=== PATIENT | male | born 1990 | race Caucasian/White ===

== ENCOUNTER 2017-12-22 01:32 | Emergency (ER) | payer BC ==
[2017-12-22] MEDS ORDERED: HYDROCODONE/APAP 7.5/325 MG TAB ONE (02:13)
[2017-12-22] MEDS ORDERED: NA CHLORIDE 0.9% 1,000 ML ONE (02:13)
[2017-12-22 02:47] LABS: Absolute Lymphocytes (CBC) 3.5 K/uL (0.7-4.9); Absolute Monocytes 0.8 K/uL (0.1-1.3); Absolute Neutrophil 3.2 K/uL (1.8-8.0); Basophils % 0.5 % (0-1.3); Eosinophils % 3.4 % (0-4.4); Hematocrit 47.8 % (39.6-49.0); Lymphocytes % 45.4 % (15.3-44.8); MCH 29.8 pg (27.0-35.0); MCV 85.8 fL (80-100); MPV 8.8 fL (7.6-11.3); Monocytes % 9.7 % (3.3-12.3); RBC Red Blood Cell Count 5.57 M/uL (4.33-5.43)
[2017-12-22] MEDS ORDERED: ONDANSETRON 4 MG/2 ML VIAL ONE (03:04)
[2017-12-22] MEDS ORDERED: MORPHINE 4 MG/ML SYR ONE (03:04)
[2017-12-22 03:22] LABS: Thyroid Stimulating Hormone 7.37 uIU/mL (0.36-3.74)
[2017-12-22 03:32] LABS: Urine Blood NEGATIVE (NEG); Urine Glucose NEGATIVE (NEG); Urine Protein NEGATIVE (NEG); Urine Specific Gravity 1.025 (1.005-1.030)
[2017-12-22 03:43] LABS: Barbiturates NEGATIVE (NEGATIVE); Benzodiazepines NEGATIVE (NEGATIVE); Cocaine NEGATIVE (NEGATIVE); METHAMPHETAM NEGATIVE (NEGATIVE); Methadone NEGATIVE (NEGATIVE); Opiates NEGATIVE (NEGATIVE); Phencyclidine NEGATIVE (NEGATIVE); THC Cannibis NEGATIVE (NEGATIVE)
--- NOTE | 2017-12-22 04:17 | ER ---
Nurse's Notes [facility] Name: Otto Sullivan Age: 27 yrs Sex: Male : 1990 Arrival Date: 12/22/2017 Time: 01:38 Bed 15 Private MD: Diagnosis: Acute headache. Viral syndrome. Hypothyroidism. Dental pain Presentation: 12/22 01:54 Presenting complaint: Patient states: "Since Wednesday, I have felt hungover is the best lp1 way to describe it"; Patient states having migraines, general weakness, getting fatigued quicker at work; Also have pain to tooth on right side of mouth. Transition of care: patient was not received from another setting of care. Onset of symptoms was December 17, 2017. Risk Assessment: Do you want to hurt yourself or someone else? Patient reports no desire to harm self or others. Initial Sepsis Screen: Does the patient meet any 2 criteria? No. Patient's initial sepsis screen is negative. Does the patient have a suspected source of infection? No. Patient's initial sepsis screen is negative. Care prior to arrival: None. 01:54 Method Of Arrival: Ambulatory lp1 01:54 Acuity: MARLON 3 lp1 Triage Assessment: 02:07 Headache History: The patient has had previous headaches and this one is different than lp1 previous episodes. General: Patient states migraine lasting longer that normal. 02:08 Pain: Pain began 2-3 days ago. lp1 02:08 Pain: Also complains of nausea. lp1 Historical: - Allergies: 01:57 No Known Allergies; lp1 - Home Meds: 01:57 None [Active]; lp1 - PMHx: 01:57 Migraines; lp1 - PSHx: 01:57 None; lp1 - Immunization history:: Adult Immunizations up to date. - Social history:: Smoking status: Patient uses tobacco products, smokes one pack cigarettes per day. - Ebola Screening: : No symptoms or risks identified at this time. Screenin:58 Abuse screen: Denies threats or abuse. Denies injuries from another. Nutritional lp1 screening: No deficits noted. Tuberculosis screening: No symptoms or risk factors identified. Fall Risk None identified. Assessment: 01:58 General: Appears in no apparent distress. Behavior is calm, cooperative, appropriate lp1 for age. Pain: Complains of pain in head Pain currently is 2 out of 10 on a pain scale. Quality of pain is described as aching. Neuro: Level of Consciousness is awake, alert, obeys commands, Oriented to person, place, time, situation, Gait is steady, Pupils are PERRLA, Reports weakness exacerbated when at work in the heat. 02:04 Cardiovascular: Patient's skin is warm and dry. Respiratory: Respiratory effort is lp1 even, unlabored, Breath sounds are clear bilaterally. GI: Abdomen is non-distended, Reports nausea. : No signs and/or symptoms were reported regarding the genitourinary system. EENT: Reports pain in right jaw. Derm: Skin is pink, warm \\T\\ dry. Musculoskeletal: Circulation, motion, and sensation intact. 03:13 Reassessment: Patient states feeling drowsy from [place], but pain to tooth on right side lp1 is not relieved, Provider notified. 03:45 Reassessment: Patient resting, eyes closed, respirations unlabored. lp1 Vital Signs: 01:56 BP 111 / 78; Pulse 69; Resp 18; Temp 97.8(O); Pulse Ox 98% on R/A; Weight 95.25 kg; lp1 Height 5 ft. 11 in. (180.34 cm); Pain 0/10; 03:13 BP 125 / 92; Pulse 60; Resp 16; Pulse Ox 100% on R/A; lp1 01:56 Body Mass Index 29.29 (95.25 kg, 180.34 cm) lp1 ED Course: 01:38 Patient arrived in ED. es 01:42 Wing Reese MD is Attending Physician. pkl 01:54 Ramila German, TOMMY is Primary Nurse. lp1 01:56 Triage completed. lp1 01:56 Arm band placed on right wrist. lp1 02:06 Patient has correct armband on for positive identification. lp1 02:24 Inserted saline lock: 22 gauge in right antecubital area, using aseptic technique. lp1 Blood collected. 03:20 Initial lab(s) drawn, by me, sent to lab. lp1 03:25 Urine collected: clean catch specimen, clear. lp1 04:18 Assist provider with bone marrow aspiration. IV discontinued, bleeding controlled, No lp1 redness/swelling at site. Pressure dressing applied. Administered Medications: 02:24 Drug: NS 0.9% 1000 ml Route: IV; Rate: 1000 ml; Site: right antecubital; lp1 04:18 Follow up: IV Status: Completed infusion; IV Intake: 1000ml lp1 02:25 Drug: [place] (7.5 mg-325 mg) 1 tabs Route: PO; lp1 03:12 Follow up: Response: Pain is unchanged, physician notified lp1 03:12 Drug: morphine 2 mg Route: IVP; Site: right antecubital; lp1 04:18 Follow up: Response: Pain is decreased lp1 03:12 Drug: Zofran 4 mg Route: IVP; Site: right antecubital; lp1 04:18 Follow up: Response: No adverse reaction lp1 Intake: 04:18 IV: 1000ml; Total: 1000ml. lp1 Outcome: 04:16 Discharge ordered by . pksandra 04:27 Discharged to home ambulatory, with family. lp1 04:27 Condition: good 04:27 Discharge instructions given to patient, Instructed on discharge instructions, follow up and referral plans. medication usage, Demonstrated understanding of instructions, follow-up care, medications, Prescriptions given X 2. 04:27 Patient left the ED. lp1 Signatures: Wing Reese MD MD pkl Salyer, Edna es Pena, Laura RN RN lp1 Corrections: (The following items were deleted from the chart) 02:06 01:58 Neuro: Level of Consciousness is awake, alert, obeys commands, Oriented to lp1 person, place, time, situation, Gait is steady, Pupils are PERRLA, Reports weakness lp1
--- NOTE | 2017-12-22 04:17 | EDPHYS ---
Physician Documentation [facility] Name: Otto Sullivan Age: 27 yrs Sex: Male : 1990 Arrival Date: 12/22/2017 Time: 01:38 Bed 15 Private MD: ED Physician Wing Reese HPI: 12/22 02:07 This 27 yrs old Male presents to ER via Ambulatory with complaints of pkl Headache, Weakness, Toothache, Feel hung over not drunk. 02:07 The patient complains of pain to the top of head and forehead. The patient describes pkl the headache as constant. Onset: The symptoms/episode began/occurred 4 day(s) ago. Associated signs and symptoms: Pertinent positives: toothache and tiredness. Historical: - Allergies: 01:57 No Known Allergies; lp1 - Home Meds: 01:57 None [Active]; lp1 - PMHx: 01:57 Migraines; lp1 - PSHx: 01:57 None; lp1 - Immunization history:: Adult Immunizations up to date. - Social history:: Smoking status: Patient uses tobacco products, smokes one pack cigarettes per day. - Ebola Screening: : No symptoms or risks identified at this time. ROS: 02:07 Eyes: Negative for injury, pain, redness, and discharge. pkl 02:07 ENT: Positive for dental pain, of the right jaw. 02:07 Neck: Negative for stiffness. 02:07 Cardiovascular: Negative for chest pain. 02:07 Respiratory: Negative for cough, shortness of breath. 02:07 Abdomen/GI: Positive for nausea. 02:07 Back: Negative for acute changes. 02:07 : Negative for urinary symptoms. 02:07 MS/extremity: Negative for acute changes. 02:07 Skin: Negative for rash. 02:07 Neuro: Positive for headache. Exam: 02:07 Head/Face: Normocephalic, atraumatic. Eyes: Pupils equal round and reactive to light, pkl extra-ocular motions intact. Lids and lashes normal. Conjunctiva and sclera are non-icteric and not injected. Cornea within normal limits. Periorbital areas with no swelling, redness, or edema. 02:07 ENT: Dental exam: pain, that is mild, specifically in the lower right second molar (#31). 02:07 Neck: Exam negative for nuchal rigidity. 02:07 Chest/axilla: Exam negative for acute changes. 02:07 Cardiovascular: Rate: normal, Rhythm: regular. 02:07 Respiratory: the patient does not display signs of respiratory distress, Respirations: normal, Breath sounds: are clear throughout. 02:07 Abdomen/GI: Bowel sounds: normal, Palpation: abdomen is soft and non-tender, in all quadrants. 02:07 Back: Exam negative for acute changes. 02:07 : Exam negative for acute changes. 02:07 Musculoskeletal/extremity: Exam is negative for acute changes. 02:07 Skin: Exam negative for rash. 02:07 Neuro: Orientation: is normal, Mentation: is normal, Cranial nerves: grossly normal, Motor: is normal. Vital Signs: 01:56 BP 111 / 78; Pulse 69; Resp 18; Temp 97.8(O); Pulse Ox 98% on R/A; Weight 95.25 kg; lp1 Height 5 ft. 11 in. (180.34 cm); Pain 0/10; 03:13 BP 125 / 92; Pulse 60; Resp 16; Pulse Ox 100% on R/A; lp1 01:56 Body Mass Index 29.29 (95.25 kg, 180.34 cm) lp1 MDM: 01:43 Patient medically screened. pkl 04:14 Data reviewed: vital signs, nurses notes, lab test result(s). pkl 12/22 02:06 Order name: CBC with Diff; Complete Time: 03:00 pkl 12/22 02:06 Order name: Chem 7; Complete Time: 03:43 pkl 12/22 02:06 Order name: TSH; Complete Time: 03:43 pkl 12/22 02:06 Order name: UDS; Complete Time: 03:46 pkl 12/22 03:12 Order name: [place]y Screen Profile; Complete Time: 04:00 pkl 12/22 03:23 Order name: T4 Free; Complete Time: 03:43 EDMS 12/22 03:30 Order name: Urine Dipstick--Ancillary (enter results); Complete Time: 03:43 mt Administered Medications: 02:24 Drug: NS 0.9% 1000 ml Route: IV; Rate: 1000 ml; Site: right antecubital; lp1 04:18 Follow up: IV Status: Completed infusion; IV Intake: 1000ml lp1 02:25 Drug: [place] (7.5 mg-325 mg) 1 tabs Route: PO; lp1 03:12 Follow up: Response: Pain is unchanged, physician notified lp1 03:12 Drug: morphine 2 mg Route: IVP; Site: right antecubital; lp1 04:18 Follow up: Response: Pain is decreased lp1 03:12 Drug: Zofran 4 mg Route: IVP; Site: right antecubital; lp1 04:18 Follow up: Response: No adverse reaction lp1 Disposition: 12/22/17 04:16 Discharged to Home. Impression: Acute headache. Viral syndrome. Hypothyroidism. Dental pain. - Condition is Stable. - Prescriptions for Ultram 50 mg Oral Tablet - take 1 tablet by ORAL route every 8 hours As needed; 20 tablet. Levothyroxine 50 mcg Oral Tablet - take 1 tablet by ORAL route once daily take 30 minutes before breakfast; 60 tablet. - Work release form, Medication Reconciliation Form, Thank You Letter, Antibiotic Education, Prescription Opioid Use form. - Follow up: Private Physician; When: 2 - 3 days; Reason: Re-evaluation by your physician. - Problem is new. - Symptoms are unchanged. Signatures: Dispatcher [employer] EDWing Chang MD MD pkl Ramila German RN RN lp1 Corrections: (The following items were deleted from the chart) 04:27 04:16 12/22/2017 04:16 Discharged to Home. Impression: Acute headache. Viral syndrome. lp1 Hypothyroidism. Dental pain. Condition is Stable. Forms are Medication Reconciliation Form, Thank You Letter, Antibiotic Education, Prescription Opioid Use. Follow up: Private Physician; When: 2 - 3 days; Reason: Re-evaluation by your physician. Problem is new. Symptoms are unchanged. pkl
== END 2017-12-22 04:27 | disposition home or self-care (01) ==
LOC: ER 01:32
DX: R51 Headache (principal); B34.9 Viral infection, unspecified; E03.9 Hypothyroidism, unspecified; K08.89 Other specified disorders of teeth and supporting structures; F17.210 Nicotine dependence, cigarettes, uncomplicated
CPT/HCPCS: 36415; 80048; 80307; 81003; 84439; 84443; 85025; 86308; 96361; 96374; 96375; 99284; J2405; J7030

== ENCOUNTER 2018-09-28 05:56 | Emergency (ER) | payer BC ==
[2018-09-28] MEDS ORDERED: hydrOXYzine HCl 25 MG TAB ONE (06:40)
--- NOTE | 2018-09-28 07:07 | EDPHYS ---
Physician Documentation [facility] Name: Otto Sullivan Age: 28 yrs Sex: Male : 1990 Arrival Date: 09/28/2018 Time: 05:57 Bed 7 Private MD: Nakul Goldstein ED Physician Gianluca Alonso HPI: 09/28 06:27 This 28 yrs old Male presents to ER via Ambulatory with complaints of Anxiety.pm1 06:27 The patient presents to the emergency department with anxiety, over a relationship, has pm1 had a recent break-up. Onset: The symptoms/episode began/occurred 1 week(s) ago. Past psychiatric history: Prior diagnosis: no previous psychiatric diagnosis known, Psychiatric medications include: none, Primary psychiatric physician: the patient does not have a primary psychiatric physician. Associated signs and symptoms: Pertinent positives; anxiety, SOB and hyperventilation, Pertinent negatives: abdominal pain, chest pain, fever, headache, homicidal ideation, nausea, substance abuse, suicide ideation, vomiting. Severity of symptoms: in the emergency department the symptoms are unchanged Pain is currently a 0 / 10. The patient has not experienced similar symptoms in the past. The patient has not recently seen a physician, the patient's primary care provider is Dr. Goldstein. Patient left his of 10 years one week ago and since then he has had episodes of anxiety with hyperventilation and shortness of breath episodes. He left her due to a toxic relationship between them. He had been planning to leave her and moved into a separate apartment. He has not been able to focus at work and came to the ER hoping that there is a medication that he can take to calm him down and to help him focus at work. Historical: - Allergies: 06:10 No Known Allergies; tl2 - Home Meds: 06:10 None [Active]; tl2 - PMHx: 06:10 Migraines; tl2 - PSHx: 06:10 None; tl2 - Immunization history:: Adult Immunizations up to date. - Social history:: Smoking status: Patient uses tobacco products, smokes one pack cigarettes per day. - Ebola Screening: : No symptoms or risks identified at this time. ROS: 06:27 Constitutional: Negative for fever, chills, and weight loss, Eyes: Negative for injury, pm1 pain, redness, and discharge, ENT: Negative for injury, pain, and discharge, Neck: Negative for injury, pain, and swelling, Cardiovascular: Negative for chest pain, palpitations, and edema. 06:27 Abdomen/GI: Negative for abdominal pain, nausea, vomiting, diarrhea, and constipation, Back: Negative for injury and pain, : Negative for injury, bleeding, discharge, and swelling, MS/Extremity: Negative for injury and deformity, Skin: Negative for injury, rash, and discoloration, Neuro: Negative for headache, weakness, numbness, tingling, and seizure. 06:27 Respiratory: Positive for shortness of breath, with anxiety episodes, Negative for cough, sputum production, wheezing. 06:27 Psych: Positive for anxiety, depression, Negative for drug dependence, alcohol dependence, auditory hallucinations, visual hallucinations, homicidal ideation, suicide gesture, suicidal ideation. Exam: 06:27 Constitutional: This is a well developed, well nourished patient who is awake, alert, pm1 and in no acute distress. Head/Face: Normocephalic, atraumatic. Eyes: Pupils equal round and reactive to light, extra-ocular motions intact. Lids and lashes normal. Conjunctiva and sclera are non-icteric and not injected. Cornea within normal limits. Periorbital areas with no swelling, redness, or edema. ENT: Nares patent. No nasal discharge, no septal abnormalities noted. Tympanic membranes are normal and external auditory canals are clear. Oropharynx with no redness, swelling, or masses, exudates, or evidence of obstruction, uvula midline. Mucous membranes moist. Neck: Trachea midline, no thyromegaly or masses palpated, and no cervical lymphadenopathy. Supple, full range of motion without nuchal rigidity, or vertebral point tenderness. No Meningismus. Chest/axilla: Normal chest wall appearance and motion. Nontender with no deformity. No lesions are appreciated. Cardiovascular: Regular rate and rhythm with a normal S1 and S2. No gallops, murmurs, or rubs. Normal PMI, no JVD. No pulse deficits. Respiratory: Lungs have equal breath sounds bilaterally, clear to auscultation and percussion. No rales, rhonchi or wheezes noted. No increased work of breathing, no retractions or nasal flaring. Abdomen/GI: Soft, non-tender, with normal bowel sounds. No distension or tympany. No guarding or rebound. No evidence of tenderness throughout. Back: No spinal tenderness. No costovertebral tenderness. Full range of motion. Skin: Warm, dry with normal turgor. Normal color with no rashes, no lesions, and no evidence of cellulitis. MS/ Extremity: Pulses equal, no cyanosis. Neurovascular intact. Full, normal range of motion. 06:27 Neuro: Orientation: is normal, Motor: is normal, moves all fours, Gait: is steady, at a normal pace, without difficulty. 06:27 Psych: Behavior/mood is anxious, Affect is animated, Oriented to person, place, time, Patient has no thoughts/intents to harm self or others. Judgement / Insight is normal. Delusions/hallucinations are not present. Vital Signs: 06:10 BP 118 / 86; Pulse 67; Resp 20; Temp 98.1(O); Pulse Ox 99% on R/A; Weight 94.35 kg; tl2 Height 5 ft. 11 in. (180.34 cm); Pain 0/10; 07:30 BP 120 / 78; Pulse 61; Resp 18; Temp 97.8; Pulse Ox 100% on R/A; ph 06:10 Body Mass Index 29.01 (94.35 kg, 180.34 cm) tl2 MDM: 06:13 Patient medically screened. pm1 06:27 Data reviewed: vital signs. Data interpreted: Pulse oximetry: on room air is 99 %. pm1 Interpretation: normal. 06:27 Refusal of service: The patient/guardian displays adequate decision making capability pm1 and despite a detailed discussion of alternatives, benefits, risks, and consequences refuses: all lab tests, ECG. Patient left his of 10 years, 1 week ago and his feelings of anxiety started after he left her. Patient does not want any labs or ECG because he is hoping for a medication to help him feel relaxed and able to go work. . 07:06 Counseling: I had a detailed discussion with the patient and/or guardian regarding: the pm1 historical points, exam findings, and any diagnostic results supporting the discharge/admit diagnosis, the need for outpatient follow up, for definitive care, a family practitioner, a psychiatrist, to return to the emergency department if symptoms worsen or persist or if there are any questions or concerns that arise at home. 07:34 ED course: Patient reports that he is feeling better now with the medication given in pm1 the ER. He feels calmer now. Administered Medications: 06:30 Drug: hydrOXYzine 50 mg Route: PO; lp1 07:30 Follow up: Response: No adverse reaction ph Disposition: 20:27 Co-signature as Attending Physician, Gianluca Alonso MD. rn Disposition: 09/28/18 07:06 Discharged to Home. Impression: Acute stress reaction. - Condition is Stable. - Discharge Instructions: Panic Attacks, Stress and Stress Management. - Prescriptions for Hydroxyzine HCl 25 mg Oral Tablet - take 1 tablet by ORAL route every 6 hours As needed; 30 tablet. - Work release form, Medication Reconciliation Form, Thank You Letter, Antibiotic Education, Prescription Opioid Use form. - Follow up: Emergency Department; When: As needed; Reason: Worsening of condition. Follow up: Private Physician; When: 2 - 3 days; Reason: Recheck today's complaints, Continuance of care, Re-evaluation by your physician. Follow up: Nakul Goldstein MD; When: 2 - 3 days; Reason: Recheck today's complaints, Continuance of care, Re-evaluation by your physician. - Problem is new. - Symptoms have improved. Signatures: Gianluca Alonso MD MD rn Pena, Laura, RN RN lp1 Toyin Bell, TOMMY RN ph Charles Bateman, LILIAN [employer] MACHINE OPERATOR pm1 Sheree Harley RN RN tl2 Corrections: (The following items were deleted from the chart) 07:06 07:06 09/28/2018 07:06 Discharged to Home. Impression: Acute stress reaction. Condition pm1 is Stable. Discharge Instructions: Panic Attacks, Stress and Stress Management. Prescriptions for Hydroxyzine HCl 25 mg Oral Tablet - take 1 tablet by ORAL route every 6 hours As needed; 30 tablet. and Forms are Medication Reconciliation Form, Thank You Letter, Antibiotic Education, Prescription Opioid Use. Follow up: Emergency Department; When: As needed; Reason: Worsening of condition. Follow up: Private Physician; When: 2 - 3 days; Reason: Recheck today's complaints, Continuance of care, Re-evaluation by your physician. Problem is new. Symptoms have improved. pm1 07:36 07:06 09/28/2018 07:06 Discharged to Home. Impression: Acute stress reaction. Condition ph is Stable. Discharge Instructions: Panic Attacks, Stress and Stress Management. Prescriptions for Hydroxyzine HCl 25 mg Oral Tablet - take 1 tablet by ORAL route every 6 hours As needed; 30 tablet. and Forms are Medication Reconciliation Form, Thank You Letter, Antibiotic Education, Prescription Opioid Use. Follow up: Emergency Department; When: As needed; Reason: Worsening of condition. Follow up: Private Physician; When: 2 - 3 days; Reason: Recheck today's complaints, Continuance of care, Re-evaluation by your physician. Follow up: Nakul Goldstein; When: 2 - 3 days; Reason: Recheck today's complaints, Continuance of care, Re-evaluation by your physician. Problem is new. Symptoms have improved. pm1
--- NOTE | 2018-09-28 07:07 | ER ---
Nurse's Notes [facility] Name: Otto Sullivan Age: 28 yrs Sex: Male : 1990 Arrival Date: 09/28/2018 Time: 05:57 Bed 7 Private MD: Nakul Goldstein Diagnosis: Acute stress reaction Presentation: 09/28 06:08 Presenting complaint: Patient states: having panic attacks for over a week. Dealing tl2 with stress at home. Unable to work and feels like he can't function, feels short of breath. Transition of care: patient was not received from another setting of care. Onset of symptoms was September 21, 2018. Risk Assessment: Do you want to hurt yourself or someone else? Patient reports no desire to harm self or others. Initial Sepsis Screen: Does the patient meet any 2 criteria? No. Patient's initial sepsis screen is negative. Does the patient have a suspected source of infection? No. Patient's initial sepsis screen is negative. Care prior to arrival: None. 06:08 Method Of Arrival: Ambulatory tl2 06:08 Acuity: MARLON 4 tl2 Triage Assessment: 06:10 General: Appears in no apparent distress. uncomfortable, Behavior is cooperative, tl2 anxious, restless. Pain: Denies pain. Neuro: Level of Consciousness is awake, alert, obeys commands, Oriented to person, place, time, situation. Cardiovascular: Denies chest pain. Respiratory: Airway is patent Respiratory effort is even, unlabored, Respiratory pattern is regular, symmetrical. Respiratory: Reports shortness of breath. GI: No signs and/or symptoms were reported involving the gastrointestinal system. : No signs and/or symptoms were reported regarding the genitourinary system. Derm: Skin is pink, warm \\T\\ dry. Historical: - Allergies: 06:10 No Known Allergies; tl2 - Home Meds: 06:10 None [Active]; tl2 - PMHx: 06:10 Migraines; tl2 - PSHx: 06:10 None; tl2 - Immunization history:: Adult Immunizations up to date. - Social history:: Smoking status: Patient uses tobacco products, smokes one pack cigarettes per day. - Ebola Screening: : No symptoms or risks identified at this time. Screenin:11 Abuse screen: Denies threats or abuse. Nutritional screening: No deficits noted. tl2 Tuberculosis screening: No symptoms or risk factors identified. Fall Risk None identified. Assessment: 06:10 General: Appears uncomfortable, Behavior is anxious, restless. Pain: Denies pain. lp1 Neuro: Level of Consciousness is awake, alert, obeys commands, Oriented to person, place, time, situation. Cardiovascular: Patient's skin is warm and dry. Respiratory: Reports shortness of breath "It feels like I can't catch my breath" Respiratory effort is even, unlabored, Breath sounds are clear bilaterally. GI: No signs and/or symptoms were reported involving the gastrointestinal system. : No signs and/or symptoms were reported regarding the genitourinary system. EENT: No signs and/or symptoms were reported regarding the EENT system. Derm: Skin is pink, warm \\T\\ dry. Musculoskeletal: Circulation, motion, and sensation intact. 06:25 Reassessment: Provider at bedside with patient; Patient declines need for lab work, lp1 EKG, urine testing; States "I just need something to calm me down so I can go to work". 06:25 General: Behavior is anxious. lp1 07:35 Reassessment: Patient appears in no apparent distress at this time. Patient and/or ph family updated on plan of care and expected duration. Pain level reassessed. Patient is alert, oriented x 3, equal unlabored respirations, skin warm/dry/pink. Pt states, " I am starting to feel more calm. I think the medicine is starting to work." Pt d/ home w/ prescriptions and follow up information for psychiatry. Vital Signs: 06:10 BP 118 / 86; Pulse 67; Resp 20; Temp 98.1(O); Pulse Ox 99% on R/A; Weight 94.35 kg; tl2 Height 5 ft. 11 in. (180.34 cm); Pain 0/10; 07:30 BP 120 / 78; Pulse 61; Resp 18; Temp 97.8; Pulse Ox 100% on R/A; ph 06:10 Body Mass Index 29.01 (94.35 kg, 180.34 cm) tl2 ED Course: 05:57 Patient arrived in ED. es 05:57 Nakul Goldstein MD is Private Physician. es 05:59 Ramila German, TOMMY is Primary Nurse. lp1 06:04 Charles Bateman NP is PHCP. pm1 06:04 Gianluca Alonso MD is Attending Physician. pm1 06:09 Triage completed. tl2 06:10 Arm band placed on right wrist. tl2 06:11 Patient has correct armband on for positive identification. Bed in low position. Call tl2 light in reach. Side rails up X 1. 07:06 aNkul Goldstein MD is Referral Physician. pm1 07:18 Primary Nurse role handed off by Ramila German RN bd 07:35 No provider procedures requiring assistance completed. Patient did not have IV access ph during this emergency room visit. 07:36 Toyin Bell RN is Primary Nurse. ph Administered Medications: 06:30 Drug: hydrOXYzine 50 mg Route: PO; lp1 07:30 Follow up: Response: No adverse reaction ph Outcome: 07:06 Discharge ordered by MD. pm1 07:36 Patient left the ED. ph 07:36 Discharged to home ambulatory. ph 07:36 Condition: improved 07:36 Discharge instructions given to patient, Instructed on discharge instructions, follow up and referral plans. medication usage, Demonstrated understanding of instructions, follow-up care, medications, Prescriptions given X 1. Signatures: Sharda Driver Edna es Pena, Laura, TOMMY RN lp1 Toyin Bell RN RN Charles Bateman NP INDEPENDENT LIVING INSTRUCTOR pm1 Sheree Harley RN RN tl2
== END 2018-09-28 07:36 | disposition home or self-care (01) ==
LOC: ER 05:56
DX: F43.0 Acute stress reaction (principal); F17.210 Nicotine dependence, cigarettes, uncomplicated
CPT/HCPCS: 99283

== ENCOUNTER 2019-11-04 17:55 | Emergency (ER) | payer BC ==
--- OUTSIDE RECORDS SUMMARY | 2019-11-04 17:58 | XMS REPORT | Summary of Care ---
:1990 Author Organization [facility] Address [address] [place] [address] Care Team Providers Name Role Phone Kayla Rodriguez Primary Care Provider Reason for Visit Reason Comments Skin Problem Encounter Details Date Type Department Care Team Description 09/06/2019 Telemedicine Visit [facility] Molina Il garret Alejandro MD [address] [facility] [id number] [place] [address] Neoplasm of Dermatology, Ankit An MD [address] [place] [address]. [place] [address] uncertain behavior Coleman of skin of face [address] [facility] (Primary D x) South Entrance [address], [address] [place] [phone] Allergies No Known Allergiesdocumented as of this encounter (statuses as of 09/12/2019) Medications Medication Sig Dispensed Refills Start Date End Date Status S-ADENOSYLMETHIONINE SUL Take by mouth. 0 Active TOSYL (ROBBIE-E ORAL) traMADOL 50 mg tablet Take 50 mg by 0 Active mouth every 6 (six) hours as needed. levothyroxine 50 mcg Take 1 tablet by 30 tablet 0 02/21/2018 Active tabletIndications: mouth every Acquired hypothyroidism morning. Follow-up with Dr. Adan for refills. azithromycin 250 mg Take 1 tablet by 1 Package 0 02/22/2018 Active tabletIndications: mouth Bronchitis SEE-INSTRUCTIONS . Take 500 mg day 1, then 250 mg days 2 to 5. brompheniramine-pseudoep Take 5 mL by 110 mL 0 02/22/2018 Active hedrine-DM (BROMFED DM) mouth 4 (four) 2-30-10 mg/5 mL times daily as syrupIndications: needed for Bronchitis Congestion/Aller gies or Cough. documented as of this encounter (statuses as of 09/12/2019) Active Problems Problem Noted Date Sleep apnea, unspecified type 08/15/2017 Adjustment disorder with depressed mood 11/06/2005 documented as of this encounter (statuses as of 09/12/2019) Social History Tobacco Use Types Packs/Day Years Used Date Current Every Day Smoker Cigarettes 1 14 Smokeless Tobacco: Never Used Comments: now using vape Alcohol Use Drinks/Week oz/Week Comments Yes every other week : 1 case Sex Assigned at Date Recorded Not on file Job Start Date Occupation Industry Not on file Not on file Not on file Travel History Travel Start Travel End No recent travel history available. documented as of this encounter Last Filed Vital Signs Not on filedocumented in this encounter Progress Notes Ankit An MD - 09/12/2019 2:40 PM CDT TELEHEALTH VISIT Verbal consent obtained from Otto Sullivan for telehealth services provided below. Provider at home. Patient at home. Telephone encounter. A total of 5 min was spent counseling the patient. 10:25- 10:30 am CC: lesion on face HPI Otto Sullivan is a 29 year old male presenting as follow up. He has concerns of a lesion on his leftcheek, ongoing for about 10 years. He notes it is growing in size and is itchy but not painful or bleeding. Has never peeled off. Was evaluate at his last skin check in 2018, called benign nevus. Histories Past Medical History: Diagnosis Date Bipolar disease, chronic Sleep apnea (-) personal history of skin cancer (+) family history of skin cancer: grandmother from melanoma Allergies No Known Allergies Medications Current Outpatient Medications on File Prior to Visit Medication Sig Dispense Refill azithromycin 250 mg tablet Take 1 tablet by mouth SEE-INSTRUCTIONS. Take 500 mg day 1, then 250 mg days 2 to 5. 1 Package 0 astiinmivnxqhlq-vpsvvqawpucklyz-SL (BROMFED DM) 2-30-10 mg/5 mL syrup Take 5 mL by mouth 4 (four) times daily as needed for Congestion/Allergies or Cough. 110 mL 0 levothyroxine 50 mcg tablet Take 1 tablet by mouth every morning. Follow-up with Dr. Adan for refills. 30 tablet 0 traMADOL 50 mg tablet Take 50 mg by mouth every 6 (six) hours as needed. S-ADENOSYLMETHIONINE SUL TOSYL (ROBBIE-E ORAL) Take by mouth. No current facility-administered medications on file prior to visit. Review of Systems Constitutional: Pain (-) Skin: Itching (+), Rash (-), Growth (+) Heme: Bleeding (-) Physical Exam General: No acute distress Psychiatric: Normal affect Pulmonary: Breathing unlabored Skin: brown flat papule on left cheek (1) Actinic Keratosis (A): erythematous scaling papules Dyer Hemaniogioma (CH): smooth red and purple papules Dermatitis Erythema (DE): mild to moderate erythema and scaling Dermatitis Lichenified (DL): lichenification and thickening Dermatitis Weeping (DW): weeping and excoriation Inflamed Seborrheic Keratosis (ISK): inflamed warty brown papules and plaques Millium (ML): Small white cystic papule Molluscum Contagiosum (MC): umbilicated papule Nevus Macular (NM): well circumscribed evenly pigmented macule Nevus Papular (ACADEMIC COUNSELOR): well circumscribed evenly pigmented papule Psoriasis Circumscribed (PC): well circumscribed erythema and scaling Psoriasis Diffuse (PD): diffuse patches of erythema and scaling Seborrheic Keratosis (SK): verrucous brown papules and plaques Scar (SR): cicatricial change Verruca Vulgarus (W): warty hyperkeratotic papule Photo provided per patient Assessment/Plan 1. 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 Was last evaluated in 2018, photo taken in [facility] at that time. - Recheck in clinic at next visit. Pt is disappointed that we cannot take a biopsy at this time. Explained that with COVID restrictions we are unable to at this time. Will re-evaluate when clinic opens. - Can consider biopsy at next visit in clinic if it seems medically neccessary RTC in first week of November 2019 to recheck and for full skin check or when clinic reopens I, Venkatesh H. Seigel, am scribing for, and in the presence of, Ankit An MD; Ankit An MD performed and/or ordered the services described here-in. Venkatesh Mercado 09/12/2019 10:25 I, Dr. Ankit An, personally performed and/or ordered the services described in this documentation, as scribed by Venkatesh Mercado in my presence, and it is both accurate and complete. Ankit An MD [facility] Dermatology, PGY-4 09/12/2019 Jacquelin Marie - 09/12/2019 2:40 PM CDT documented in this encounter Plan of Treatment Health Maintenance Due Date Last Done Comments VARICELLA VACCINES (1 of 2 - 02/23/1989 2-dose childhood series) DTaP,Tdap,and Td Vaccines (1 - 02/23/1999 Tdap) INFLUENZA VACCINE (#1) 2019 PNEUMOCOCCAL 0-64 YEARS COMBINED Aged Out No longer eligible based on SERIES patient's age to complete this topic documented as of this encounter Results Not on filedocumented in this encounter Visit Diagnoses Diagnosis Neoplasm of uncertain behavior of skin o f face - Primary documented in this encounter Insurance Payer Benefit Plan Subscriber ID Effective Dates Phone Address Type / Group [facility] [id number] 2017-Liya [phone] [address] PPO/POS [place] t 7 [id number] [place] [address] documented as of this encounter
--- OUTSIDE RECORDS SUMMARY | 2019-11-04 17:58 | XMS REPORT ---
:1990 Author Organization [facility] t Address [address] [place] [address] Care Team Providers Name Role Phone Marcus SANDERS Attending Clinician Unavailable Arik BARKLEY Attending Clinician Fred An MD Attending Clinician Doctor Unassigned, Name Attending Clinician Unavailable Problems This patient has no known problems. Allergies, Adverse Reactions, Alerts This patient has no known allergies or adverse reactions. Medications This patient has no known medications. Procedures This patient has no known procedures. Encounters Start End Encounter Admission Attending Care Care Encounter Source Date/Time Date/Time Type Type Clinicians Facility Department ID 2019-10-17 2019-10-17 Transition Aishwarya Velazquez [id number] 00:00:00 00:00:00 of Care Zoe Jefferson [id number] [place] [id number] 2019-10-15 2019-10-15 Emergency TANYA Elise [id number] 03:32:30 05:01:00 Dor[place]o [place] [id number] [place] [id number] Zenia [id number] 2019-09-06 2019-09-12 Telemedici TANYA An [id number] 10:25:43 10:49:57 ne Visit [facility] [id number] Fred BRADY [id number] [place] [id number] [facility] 2019-09-11 2019-09-11 Patient Doctor [facility] [id number] 00:00:00 00:00:00 Secure Msg Unassigned, [facility] [id number] [place] JOSE ANTONIO [id number] [place] [id number] [facility] Results This patient has no known results.
--- OUTSIDE RECORDS SUMMARY | 2019-11-04 17:58 | XMS REPORT | Summary of Care ---
:1990 Author Organization [facility] Address [address] [place] [address] Care Team Providers Name Role Phone Kayla Rodriguez Primary Care Provider Reason for Visit Reason Comments Skin Problem Encounter Details Date Type Department Care Team Description 09/06/2019 Telemedicine Visit [facility] Molina Ar garret Alejandro MD [address] [facility] [id number] [place] [address] Neoplasm of Dermatology, Ankit An MD [address] [place] [address]. [place] [address] uncertain behavior Kimberly of skin of face [address] [facility] (Primary D x) South Entrance [address], [address] [place] [phone] Allergies No Known Allergiesdocumented as of this [...] days 2 to 5. 1 Package 0 kxjggmfozawcggs-ijknozrfzaaezau-PX (BROMFED DM) 2-30-10 mg/5 mL syrup Take [...] well circumscribed evenly pigmented macule Nevus Papular (IT MANAGER): well circumscribed evenly pigmented papule Psoriasis Circumscribed [...] last evaluated in 2018, photo taken in [facility] at that time. - Recheck in clinic [...] both accurate and complete. Ankit An MD [facility] Dermatology, PGY-4 09/12/2019 Jacquelin [...] Effective Dates Phone Address Type / Group [facility] [id number] 2017-Liya [phone] [address] PPO/POS [place] t 7 [id number] [place] [address] documented as of this encounter
--- OUTSIDE RECORDS SUMMARY | 2019-11-04 17:59 | XMS REPORT | Summary of Care ---
:1990 Author Organization [facility] Address [address] [place] [address] Care Team Providers Name Role Phone Kayla Rodriguez Primary Care Provider Encounter Details Date Type Department Care Team Description 09/11/2019 Patient Secure [facility] Dermatology, Doctor Laura ssigned, [place] [address] [facility] [address] [facility] [address], [address] [place] [address] [place] [address] Allergies No Known Allergiesdocumented as of this encounter (statuses as of 10/14/2019) Medications Medication Sig Dispensed Refills Start Date [...] as of this encounter (statuses as of 10/14/2019) Active Problems Problem Noted Date Sleep apnea, unspecified type 08/15/2017 Adjustment disorder with depressed mood 11/06/2005 documented as of this encounter (statuses as of 10/14/2019) Social History Tobacco Use Types Packs/Day Years [...] Signs Not on filedocumented in this encounter Plan of Treatment Health Maintenance Due Date Last Done Comments VARICELLA VACCINES (1 of 2 - 02/23/1989 2-dose childhood series) DTaP,Tdap,and Td Vaccines ( - 02/23/1999 Tdap) INFLUENZA VACCINE (#1) 2019 PNEUMOCOCCAL 0-64 YEARS COMBINED Aged Out No longer eligible based on SERIES patient's age to complete this topic documented as of this encounter Results Not on filedocumented in this encounter Insurance Payer Benefit Plan Subscriber ID Effective Dates Phone Address Type / Group [facility] [id number] 2017-Liya [phone] [address] PPO/POS [place] t 7 [id number] [place] [address] documented as of this encounter
--- OUTSIDE RECORDS SUMMARY | 2019-11-04 17:59 | XMS REPORT | Summary of Care ---
:1990 Author Organization [facility] Address [address] [place] [address] Care Team Providers Name Role Phone Nakul Goldstein Elyssa Primary Care Provider Reason for Visit Reason Comments ED F/U Encounter Details Date Type Department Care Team Description 10/17/2019 Transition of Care [facility] Zoe Velazquez RN ED F/U [address] [phone] Allergies No Known Allergiesdocumented as of this encounter (statuses as of 10/17/2019) Medications Medication Sig Dispensed Refills Start Date [...] needed for Bronchitis Congestion/Aller gies or Cough. ibuprofen 800 mg Take 1 tablet by 30 tablet 0 10/15/2019 Active tabletIndications: Rib mouth every 8 pain, Muscle strain (eight) hours. documented as of this encounter (statuses as of 10/17/2019) Active Problems Problem Noted Date Sleep apnea, unspecified type 08/15/2017 Adjustment disorder with depressed mood 11/06/2005 documented as of this encounter (statuses as of 10/17/2019) Immunizations Name Administration Dates Next Due TDAP (ADACEL) VACCINE 10/15/2019 () documented as of this encounter Social History Tobacco Use Types Packs/Day Years [...] Travel End No recent travel history available. COVID-19 Exposure Response Date Recorded In the last month, have you been in contact with No / Unsure 10/15/2019 3:33 AM CDT someone who was confirmed or suspected to have Coronavirus / COVID-19? documented as of this encounter Last Filed Vital Signs Not on filedocumented in this encounter Plan of Treatment Health Maintenance Due Date Last Done Comments VARICELLA VACCINES (1 of - 02/23/1989 2-dose childhood series) DTaP,Tdap,and Td Vaccines ( - 02/23/1999 Tdap) INFLUENZA VACCINE (Season Ended) 2020 PNEUMOCOCCAL 0-64 YEARS COMBINED Aged Out No longer eligible based on SERIES patient's age to complete this topic documented as of this encounter Results Not on filedocumented in this encounter Insurance Payer Benefit Plan Subscriber ID Effective Dates Phone Address Type / Group BCBS OF [facility] [id number] 2017-Liya [phone] [address] PPO/POS [place] t [id number] [place] [address] documented as of this encounter
--- OUTSIDE RECORDS SUMMARY | 2019-11-04 17:59 | XMS REPORT | Summary of Care ---
:1990 Author Organization [facility] - [facility] Address [address] [place] [address] Care Team Providers Name Role Phone Nakul Goldstein Primary Care Provider Reason for Referral Radiology Services (STAT) Status Reason Specialty Diagnoses / Referred By Referred To Procedures Contact Contact New Request Diagnostic Diagnoses Rib pain Doroteo Keith, Radiology Procedures XR CHEST [address] [place] [address] [place] [id number] Radiology Services (STAT) Status Reason Specialty Diagnoses / Referred By Referred To Procedures Contact Contact New Request Diagnostic Diagnoses Rib pain Doroteo Keith, Radiology Procedures XR RIBS 3 VW LEFT [address] [place] [address] [place] [phone] Reason for Visit Reason Comments Rib Pain Auth/Cert Status Reason Specialty Diagnoses / Referred By Referred To Procedures Contact Contact Emergency Medicine [facility] Em ergency Dept [address] [facility] [place] [address] Fax: Encounter Details Date Type Department Care Team Description 10/15/2019 Emergency ADC-Emergency Doroteo Keith MD Rib pain (Primary Dx); Department [address] [facility] Muscle strain [address] [facility] [address] [place] [address] [place] [id number] Allergies No Known Allergiesdocumented as of this encounter (statuses as of 10/15/2019) Medications Medication Sig Dispensed Refills Start Date [...] as of this encounter (statuses as of 10/15/2019) Active Problems Problem Noted Date Sleep apnea, unspecified type 08/15/2017 Adjustment disorder with depressed mood 11/06/2005 documented as of this encounter (statuses as of 10/15/2019) Immunizations Name Administration Dates Next Due TDAP [...] of this encounter Last Filed Vital Signs Vital Sign Reading Time Taken Comments Blood Pressure 116/56 10/15/2019 3:37 AM CDT Pulse 104 10/15/2019 3:37 AM CDT Temperature 37.3 C (99.1 F) 10/15/2019 3:37 AM CDT Respiratory Rate 20 10/15/2019 3:37 AM CDT Oxygen Saturation 95% 10/15/2019 3:37 AM CDT Inhaled Oxygen Concentration - - Weight 99.8 kg (220 lb) 10/15/2019 3:37 AM CDT Height 180.3 cm (5' 11") 10/15/2019 3:37 AM CDT Body Mass Index 30.68 10/15/2019 3:37 AM CDT documented in this encounter Discharge Instructions InstructionsNeDoroteo españa MD - 10/15/2019 RETURN FOR ANY QUESTIONS OR CONCERNS Today you were seen by Doroteo Keith Jr., MD You were seen today for Chief Complaint Patient presents with Rib Pain Your ER diagnosis was ICD-10-CM ICD-9-CM 1. Rib pain R07.81 786.50 2. Muscle strain T14.8XXA 848.9 NO LIFE-THREATENING FINDINGS ON TODAY'S EXAM. YOUR PRESCRIPTIONS : Check out [employer] for medication discounts Medication List ASK your doctor about these medications azithromycin 250 mg tablet Commonly known as: ZITHROMAX Take 1 tablet by mouth SEE-INSTRUCTIONS. Take 500 mg day 1, then 250 mg days 2 to 5. nwxweajrxekexlx-fbldroqrxbwqpyb-VQ 2-30-10 mg/5 mL syrup Commonly known as: BROMFED DM Take 5 mL by mouth 4 (four) times daily as needed for Congestion/Allergies or Cough. levothyroxine 50 mcg tablet Commonly known as: SYNTHROID Take 1 tablet by mouth every morning. Follow-up with Dr. Adan for refills. ROBBIE-E ORAL traMADol 50 mg tablet Commonly known as: ULTRAM ER precautions and follow up : 1. Return to ER if your symptoms should worsen or fail to improve within 72 hours. 2. The care provided in the emergency room was for acute problems only. 3. You should follow up with your primary care provider within 72 hours. 4. Fill and take all your medications as prescribed. 5. Make sure you are staying adequately hydrated. Busque attencion immediatamente si usted tiene los sitomas sigue, vuelve peor o si hay sitomas nuevas o para cualquiera preoccupacion incluyendo dolor del pecho, falta aire, se siente debile, mas fievre, mas dolor, nausea, vomitando, sangrando que no es normal, confusion, baja or pierdas conciencia. MAY FOLLOW-UP WITH A PROVIDER OF YOUR CHOICE, SUCH : 1. A PHYSICIAN OF YOUR CHOICE 2. [facility], . LOCATIONS IN [facility] 3. [facility], [address], [place]; [phone] OR, IF YOU WISH TO FOLLOW-UP WITHIN THE [facility], MAY TRY THESE OPTIONS (CLINIC APPOINTMENTS AVAILABLE ON MSFY-HA-UUAO BASIS): 1. SCHEDULE AN APPOINTMENT ONLINE AT [facility] 2. OR CALL THE [facility] AT OR 3. OR CALL YOUR [facility] PHYSICIAN'S OFFICE DIRECTLY IF YOU ARE ALREADY AN ESTABLISHED [facility] PATIENT. [facility] RETURN TO WORK / SCHOOL EXCUSE Otto Sullivan WAS SEEN IN THE ER AND DISCHARGED 10/15/2019 TODAY, 4:38 AM & May return to Work / School / Incarceration on X with activity as tolerated indicated below. ___The following limitations apply until pt is seen by Physician and cleared to return to normal activity. _X_ Off for two days and return to activity as tolerated at work or school ___ No Sports ___ No work ___ Do not return until fever free for 24 hours. ___ No school DOROTEO KEITH Jr., MD [facility] EMER[facility]ENC[facility] DEPRTMENT [address] [place] [address] [place] [address] ### The patient may have been given Narcotic pain medications during their stay in the ED that may show up on a Drug Screen. The hospital discharge paper work will identify these medications. AttachmentsThe following attachments cannot be sent through Care Everywhere.Back Sprain/Strain (Portuguese)Muscle Spasm (Portuguese)documented in this encounter Plan of Treatment Name Type Priority Associated Diagnoses Date/Ti me XR RIBS 3 VW LEFT IMAGING STAT Rib pain 10/15/2019 4:28 AM CDT XR CHEST 1 VW IMAGING STAT Rib pain 10/15/2019 4: 28 AM CDT Health Maintenance Due Date Last Done Comments VARICELLA VACCINES (1 of 2 - 02/23/1989 2-dose childhood series) DTaP,Tdap,and Td Vaccines (1 - 02/23/1999 Tdap) INFLUENZA VACCINE (#1) 2019 PNEUMOCOCCAL 0-64 YEARS COMBINED Aged Out No longer eligible based on SERIES patient's age to complete this topic documented as of this encounter Procedures Procedure Name Priority Date/Time Associated Diagnosis Comme nts XR RIBS 3 VW LEFT STAT 10/15/2019 4:28 AM CDT Rib pain Procedure Note - [facility], Radia nt Results Inft User - 10/15/2019 4:34 AM CDT EXAM: XR CHEST 1 VW, EXAM: XR RIBS 3 VW LEFT HISTORY: left side rib pain COMPARISON: None FINDINGS: The lungs are clear. No pleu ral effusion or pneumothorax is identified. The heart is normal in size. No displaced rib fracture. IMPRESSION No acute cardiopulmonary pro cess. No displaced rib fracture. Preliminary Report Dictated by Resident: Nakul Melendrez XR CHEST 1 VW STAT 10/15/2019 4:28 AM CDT Rib pain Procedure Note - [facility], Radia nt Results Inft User - 10/15/2019 4:34 AM CDT EXAM: XR CHEST 1 VW, EXAM: XR RIBS 3 VW LEFT HISTORY: left side rib pain COMPARISON: None FINDINGS: The lungs are clear. No pleu ral effusion or pneumothorax is identified. The heart is normal in size. No displaced rib fracture. IMPRESSION No acute cardiopulmonary pro cess. No displaced rib fracture. Preliminary Report Dictated by Resident: Nakul Melendrez documented in this encounter Results Not on filedocumented in this encounter Visit Diagnoses Diagnosis Rib pain - Primary Chest pain, unspecified Muscle strain Unspecified site of sprain and strain documented in this encounter Insurance Payer Benefit Plan Subscriber ID Effective Dates Phone Address Type / Group [employer] [place] [facility] [id number] 2017-Liya [phone] [address] PPO/POS [place] t [id number] [place] [address] documented as of this encounter
[2019-11-04 19:54] LABS: Absolute Lymphocytes (CBC) 2.6 K/uL (0.7-4.9); Basophils % 1.2 % (0-1.3); Hematocrit 46.7 % (39.6-49.0); Lymphocytes % 32.2 % (15.3-44.8); MPV 9.1 fL (7.6-11.3)
[2019-11-04] MEDS ORDERED: NA CHLORIDE 0.9% 1,000 ML ONE (20:16)
[2019-11-04] MEDS ORDERED: MORPHINE 4 MG/ML SYR ONE (20:16)
[2019-11-04] MEDS ORDERED: ONDANSETRON 4 MG/2 ML VIAL ONE (20:16)
[2019-11-04 20:22] LABS: ALT/SGPT 30 U/L (12-78); AST/SGOT 10 U/L (15-37); Albumin 3.7 g/dL (3.4-5.0); Alkaline Phosphatase 143 U/L (45-117); BUN Blood Urea Nitrogen 12 mg/dL (7-18); Bicarbonate 25 mmol/L (21-32); Bilirubin Direct 0.2 mg/dL (0-0.2); Bilirubin Total 0.9 mg/dL (0.2-1.0); Glucose Level 93 mg/dL (74-106); Lipase 195 U/L (73-393); Protein, Total 7.2 g/dL (6.4-8.2); Sodium Level 141 mmol/L (136-145)
[2019-11-04 20:23] LABS: Barbiturates NEGATIVE (NEGATIVE); Benzodiazepines NEGATIVE (NEGATIVE); Cocaine NEGATIVE (NEGATIVE); METHAMPHETAM NEGATIVE (NEGATIVE); Methadone NEGATIVE (NEGATIVE); Opiates NEGATIVE (NEGATIVE); Phencyclidine NEGATIVE (NEGATIVE); THC Cannibis NEGATIVE (NEGATIVE)
--- NOTE | 2019-11-04 20:50 | RAD REPORT ---
EXAM DESCRIPTION: CTAbdomen Pelvis W Contrast - 11/04/2019 8:40 pm CLINICAL HISTORY: Abdominal pain. ABD PAIN COMPARISON: No comparisons TECHNIQUE: Biphasic CT imaging of the abdomen and pelvis was performed with 100 ml non-ionic IV cont rast. All CT scans are performed using dose optimization technique as appropriate and may include automated exposure control or mA/KV adjustment according to patient size. FINDINGS: Mild linear subsegmental atelectasis is present in the left lung base.Healing posterior le ft ninth, tenth and eleventh rib fractures. Several low-density hepatic lesions are seen, likely small cysts. No aggressive liver mass or biliary dilatation. The spleen, pancreas, adrenal glands and kidneys are within normal limits. No bowel obstruction, free air, free fluid or abscess. The appendix is normal. No evidence of signi ficant lymphadenopathy. IMPRESSION: Healing left posterior ninth, tenth and eleventh rib fractures.
[2019-11-04 21:52] LABS: Urine Blood NEGATIVE (NEG); Urine Glucose NEGATIVE (NEG); Urine Protein NEGATIVE (NEG); Urine Specific Gravity 1.025 (1.005-1.030); Urine pH 8.5 (5.0-7.0)
[2019-11-04 22:15] VITALS: TEMP 98.6
[2019-11-04 22:19] VITALS: BP 117/78; O2SAT 99
--- NOTE | 2019-11-06 18:20 | ER ---
Nurse's Notes [facility] Name: Otto Sullivan Age: 29 yrs Sex: Male : 1990 Arrival Date: 11/04/2019 Time: 17:56 Bed 20 Private MD: Diagnosis: Unspecified abdominal pain Presentation: 11/03 18:24 Chief complaint: Patient states: has had epigastric/left rib pain that started 1 week em ago, pain shoots down into the belly button, denies fever, today woke up with dizziness and nausea, denies V/D. Coronavirus screen: Proceed with normal triage. Patient denies a cough. Patient denies shortness of breath or difficulty breathing. Patient denies measured and/or subjective temperature greater than 100.4F prior to today's visit. Patient denies travel on a cruise ship or to a country the [facility] currently lists as an affected area. Patient denies contact with known and/or suspected case of COVID-19. Ebola Screen: Patient negative for fever greater than or equal to 101.5 degrees Fahrenheit, and additional compatible Ebola Virus Disease symptoms Patient denies exposure to infectious person. Patient denies travel to an Ebola-affected area in the 21 days before illness onset. No symptoms or risks identified at this time. Initial Sepsis Screen: Does the patient meet any 2 criteria? No. Patient's initial sepsis screen is negative. Does the patient have a suspected source of infection? No. Patient's initial sepsis screen is negative. Risk Assessment: Do you want to hurt yourself or someone else? Patient reports no desire to harm self or others. Onset of symptoms was October 28, 2019. 18:24 Method Of Arrival: Ambulatory em 18:24 Acuity: MARLON 3 em Historical: - Allergies: 18:27 No Known Allergies; em - Home Meds: 18:27 None [Active]; em - PMHx: 18:27 Migraines; em - PSHx: 18:27 None; em - Immunization history:: Adult Immunizations up to date. - Social history:: Smoking status: Patient reports the use of cigarette tobacco products, smokes one pack cigarettes per day. Screenin:23 Abuse screen: Denies threats or abuse. Denies injuries from another. Nutritional ca1 screening: No deficits noted. Tuberculosis screening: No symptoms or risk factors identified. Fall Risk IV access (20 points). Assessment: 19:23 General: Appears in no apparent distress. comfortable, Behavior is calm, cooperative, ca1 appropriate for age. Pain: Complains of pain in umbilical area and right upper quadrant Pain does not radiate. Pain currently is 4 out of 10 on a pain scale. Quality of pain is described as sharp, stabbing, Pain began a week ago Is intermittent, Aggravated by repositioning. Neuro: Level of Consciousness is awake, alert, obeys commands, Oriented to person, place, time, situation. Cardiovascular: Heart tones S1 S2 present Capillary refill < 3 seconds Patient's skin is warm and dry. Respiratory: Airway is patent Respiratory effort is even, unlabored, Respiratory pattern is regular, symmetrical, Breath sounds are clear bilaterally. GI: Abdomen is round non-distended, Bowel sounds present X 4 quads. Abd is soft and non tender X 4 quads. Reports nausea. : No signs and/or symptoms were reported regarding the genitourinary system. EENT: No signs and/or symptoms were reported regarding the EENT system. Derm: Skin is intact, is healthy with good turgor, Skin is pink, warm \T\ dry. Musculoskeletal: Circulation, motion, and sensation intact. Capillary refill < 3 seconds. 20:30 Reassessment: Patient appears in no apparent distress at this time. Patient and/or ca1 family updated on plan of care and expected duration. Pain level reassessed. Patient is alert, oriented x 3, equal unlabored respirations, skin warm/dry/pink. 21:15 Reassessment: Patient appears in no apparent distress at this time. Patient and/or ca1 family updated on plan of care and expected duration. Pain level reassessed. Patient is alert, oriented x 3, equal unlabored respirations, skin warm/dry/pink. Vital Signs: 18:24 BP 110 / 70; Pulse 83; Resp 18; Temp 98.6; Pulse Ox 99% on R/A; Weight 95.25 kg; Height em 6 ft. 0 in. (182.88 cm); Pain 4/10; 19:24 BP 116 / 64; Pulse 87; Resp 15 S; Pulse Ox 98% on R/A; ca1 20:30 BP 115 / 80; Pulse 76; Resp 15 S; Pulse Ox 96% on R/A; ca1 21:15 BP 117 / 78; Pulse 81; Resp 16 S; Pulse Ox 99% on R/A; ca1 18:24 Body Mass Index 28.48 (95.25 kg, 182.88 cm) em ED Course: 17:56 Patient arrived in ED. as 18:27 Triage completed. em 18:27 Arm band placed on. em 19:02 Remi Gonzalez MD is Attending Physician. [facility] 19:03 Shaneka Nye, TOMMY is Primary Nurse. ca1 19:23 Patient has correct armband on for positive identification. Placed in gown. Bed in low ca1 position. Call light in reach. Side rails up X 1. Pulse ox on. NIBP on. 19:23 No provider procedures requiring assistance completed. Inserted saline lock: 20 gauge ca1 in right antecubital area, using aseptic technique. Blood collected. 20:41 CT Abd/Pelvis - IV Contrast Only In Process Unspecified. EDMS 22:08 IV discontinued, intact, bleeding controlled, No redness/swelling at site. Pressure rv dressing applied. Administered Medications: 20:00 Drug: NS 0.9% 1000 ml Route: IV; Rate: 1000 ml; Site: right forearm; ca1 22:09 Follow up: IV Status: Completed infusion; IV Intake: 1000ml rv 20:00 Drug: Zofran (Ondansetron) 4 mg Route: IVP; Site: right forearm; ca1 21:15 Follow up: Response: No adverse reaction; Nausea is decreased ca1 20:16 Not Given (Patient Refused): morphine 4 mg IVP once; RASS on ADMIN: Combtv4, Very ca1 Agttd3, Agttd2, Rstlss1, AlertClm0, Drwsy-1, Lt Sdtn-2, Mod Sdtn-3, Dp Sdtn-4, UnArsble-5 Intake: 22:09 IV: 1000ml; Total: 1000ml. rv Outcome: 21:58 Discharge ordered by . [facility] 22:08 Discharged to home ambulatory. rv 22:08 Condition: good 22:08 Discharge instructions given to patient, Instructed on discharge instructions, follow up and referral plans. Demonstrated understanding of instructions, follow-up care. 22:08 Patient left the ED. rv Signatures: Dispatcher [employer] EDOR Alberto Dumont, RN RN em Pita Oliver Ronaldo, RN RN rv Shaneka Nye, RN RN ca1 Remi Gonzalez MD MD mh7
--- NOTE | 2019-11-06 18:20 | EDPHYS ---
Physician Documentation [facility] Name: Otto Sullivan Age: 29 yrs Sex: Male : 1990 Arrival Date: 11/04/2019 Time: 17:56 Bed 20 Private MD: ED Physician Remi Gonzalez HPI: 11/03 20:22 This 29 yrs old Male presents to ER via Ambulatory with complaints of mh7 Abdominal pain. 20:22 The patient presents with abdominal pain in the left upper quadrant. Onset: The mh7 symptoms/episode began/occurred last week. The symptoms do not radiate. Associated signs and symptoms: Pertinent positives: nausea, Pertinent negatives: anorexia, blood in stools, chest pain, constipation, diarrhea, dysuria, fever, headache, hematuria, palpitations, shortness of breath, testicular pain, vomiting, vomiting blood. The symptoms are described as intermittent, sharp, waxing/waning. Modifying factors: The symptoms are alleviated by nothing, the symptoms are aggravated by movement. Severity of pain: At its worst the pain was moderate today, in the emergency department the pain is unchanged. 20:22 Associated signs and symptoms: Pertinent positives: dizziness. mh7 Historical: - Allergies: 18:27 No Known Allergies; em - Home Meds: 18:27 None [Active]; em - PMHx: 18:27 Migraines; em - PSHx: 18:27 None; em - Immunization history:: Adult Immunizations up to date. - Social history:: Smoking status: Patient reports the use of cigarette tobacco products, smokes one pack cigarettes per day. ROS: 20:22 Constitutional: Negative for fever, chills, and weight loss, Eyes: Negative for injury, mh7 pain, redness, and discharge, ENT: Negative for injury, pain, and discharge, Neck: Negative for injury, pain, and swelling, Cardiovascular: Negative for chest pain, palpitations, and edema, Respiratory: Negative for shortness of breath, cough, wheezing, and pleuritic chest pain, Back: Negative for injury and pain, : Negative for injury, bleeding, discharge, and swelling, MS/Extremity: Negative for injury and deformity, Skin: Negative for injury, rash, and discoloration, Neuro: Negative for headache, weakness, numbness, tingling, and seizure. Exam: 20:22 Constitutional: This is a well developed, well nourished patient who is awake, alert, mh7 and in no acute distress. Head/Face: Normocephalic, atraumatic. Eyes: Pupils equal round and reactive to light, extra-ocular motions intact. Lids and lashes normal. Conjunctiva and sclera are non-icteric and not injected. Cornea within normal limits. Periorbital areas with no swelling, redness, or edema. Neck: Trachea midline, no thyromegaly or masses palpated, and no cervical lymphadenopathy. Supple, full range of motion without nuchal rigidity, or vertebral point tenderness. No Meningismus. Chest/axilla: Normal chest wall appearance and motion. Nontender with no deformity. No lesions are appreciated. Cardiovascular: Regular rate and rhythm with a normal S1 and S2. No gallops, murmurs, or rubs. Normal PMI, no JVD. No pulse deficits. Respiratory: Lungs have equal breath sounds bilaterally, clear to auscultation and percussion. No rales, rhonchi or wheezes noted. No increased work of breathing, no retractions or nasal flaring. 20:22 Back: No spinal tenderness. No costovertebral tenderness. Full range of motion. Skin: Warm, dry with normal turgor. Normal color with no rashes, no lesions, and no evidence of cellulitis. MS/ Extremity: Pulses equal, no cyanosis. Neurovascular intact. Full, normal range of motion. Neuro: Awake and alert, GCS 15, oriented to person, place, time, and situation. Cranial nerves II-XII grossly intact. Motor strength 5/5 in all extremities. Sensory grossly intact. Cerebellar exam normal. Normal gait. 20:22 Abdomen/GI: Inspection: abdomen appears normal, Bowel sounds: normal, in all quadrants, Palpation: moderate abdominal tenderness, in the anterior aspect of left lateral abdomen and left upper quadrant, Rectal exam: the exam is deferred, because of patient request, Indicators: McBurney's point is not tender, Toro's sign is negative, Rovsing's sign is negative, Obturator sign is negative, Psoas sign is negative, Liver: no appreciated palpable abnormalities, Hernia: not appreciated. 21:55 ECG was reviewed by the Attending Physician. [facility] Vital Signs: 18:24 BP 110 / 70; Pulse 83; Resp 18; Temp 98.6; Pulse Ox 99% on R/A; Weight 95.25 kg; Height em 6 ft. 0 in. (182.88 cm); Pain 4/10; 19:24 BP 116 / 64; Pulse 87; Resp 15 S; Pulse Ox 98% on R/A; ca1 20:30 BP 115 / 80; Pulse 76; Resp 15 S; Pulse Ox 96% on R/A; ca1 21:15 BP 117 / 78; Pulse 81; Resp 16 S; Pulse Ox 99% on R/A; ca1 18:24 Body Mass Index 28.48 (95.25 kg, 182.88 cm) em MDM: 19:41 Patient medically screened. [facility] 21:55 Differential diagnosis: bowel obstruction, diverticulitis, non-specific abd pain, [facility] pancreatitis, Peptic Ulcer Disease, Pyelonephritis, Ureterolithiasis, urinary tract infection. Data reviewed: vital signs, nurses notes, lab test result(s), CBC, electrolytes, urinalysis, EKG, radiologic studies, CT scan. Data interpreted: Pulse oximetry: on room air is 99 %. Interpretation: normal. Counseling: I had a detailed discussion with the patient and/or guardian regarding: the historical points, exam findings, and any diagnostic results supporting the discharge/admit diagnosis, lab results, radiology results, the need for outpatient follow up, to return to the emergency department if symptoms worsen or persist or if there are any questions or concerns that arise at home. 11/03 19:40 Order name: Basic Metabolic Panel [facility] 11/03 19:40 Order name: CBC with Diff [facility] 11/03 19:40 Order name: Hepatic Function; Complete Time: 21:37 [facility] 11/03 19:40 Order name: Lipase; Complete Time: 21:37 [facility] 11/03 19:40 Order name: UDS; Complete Time: 21:37 [facility] 11/03 19:41 Order name: Basic Metabolic Panel; Complete Time: 21:37 EDMA 11/03 19:40 Order name: IV Saline Lock; Complete Time: 19:42 [facility] 11/03 19:40 Order name: Labs collected and sent; Complete Time: 19:42 [facility] 11/03 19:40 Order name: CT Abd/Pelvis - IV Contrast Only; Complete Time: 21:37 [facility] 11/03 19:41 Order name: CBC with Automated Diff; Complete Time: 21:37 EDMS 11/03 21:49 Order name: Urine Dipstick--Ancillary (enter results); Complete Time: 21:54 mt 11/03 19:40 Order name: Urine Dipstick-Ancillary (obtain specimen); Complete Time: 20:16 mh7 11/03 19:40 Order name: EKG - Nurse/Tech; Complete Time: 20:00 mh7 EC:55 Rate is 66 beats/min. Rhythm is regular. QRS [place] is Normal. [place] interval is normal. QRS mh7 interval is normal. QT interval is normal. No Q waves. T waves are Normal. No ST changes noted. Clinical impression: Normal ECG. Administered Medications: 20:00 Drug: NS 0.9% 1000 ml Route: IV; Rate: 1000 ml; Site: right forearm; ca1 22:09 Follow up: IV Status: Completed infusion; IV Intake: 1000ml rv 20:00 Drug: Zofran (Ondansetron) 4 mg Route: IVP; Site: right forearm; ca1 21:15 Follow up: Response: No adverse reaction; Nausea is decreased ca1 20:16 Not Given (Patient Refused): morphine 4 mg IVP once; RASS on ADMIN: Combtv4, Very ca1 Agttd3, Agttd2, Rstlss1, AlertClm0, Drwsy-1, Lt Sdtn-2, Mod Sdtn-3, Dp Sdtn-4, UnArsble-5 Disposition: 11/04/19 21:58 Discharged to Home. Impression: Unspecified abdominal pain. - Condition is Stable. - Discharge Instructions: Abdominal Pain, Adult, Sqsc-yc-Ivqh. - Medication Reconciliation Form, Thank You Letter, Antibiotic Education, Prescription Opioid Use form. - Follow up: Private Physician; When: 1 - 2 days; Reason: Worsening of condition, Re-evaluation by your physician. - Problem is new. - Symptoms have improved. Signatures: Dispatcher [employer] EDAlberto Young, RN RN Shaun Wray, RN RN rv Shaneka Nye RN RN ca1 Remi Gonzalez MD MD 7 Corrections: (The following items were deleted from the chart) 22:08 21:58 11/04/2019 21:58 Discharged to Home. Impression: Unspecified abdominal pain. rv Condition is Stable. Forms are Medication Reconciliation Form, Thank You Letter, Antibiotic Education, Prescription Opioid Use. Follow up: Private Physician; When: 1 - 2 days; Reason: Worsening of condition, Re-evaluation by your physician. Problem is new. Symptoms have improved. mh7
== END 2019-11-04 22:08 | disposition home or self-care (01) ==
LOC: ER 17:55
DX: R10.12 Left upper quadrant pain (principal); R42 Dizziness and giddiness; F17.210 Nicotine dependence, cigarettes, uncomplicated
CPT/HCPCS: 96361; 93005; 85025; 80048; 36415; 80076; 80307 ×8; 81003; 83690; 74177; 96374; 99284; Q9967; J7030; J2405

== ENCOUNTER 2021-06-09 13:13 | Emergency (ER) | payer BC, SELFPAY ==
--- OUTSIDE RECORDS SUMMARY | 2021-06-09 13:16 | XMS REPORT | Continuity of Care Document ---
:1990 Author Organization [facility] t Address [address] [place] [address] Care Team Providers Name Role Phone Elyssa DICKENS Primary Care Physician Unavailable Marcus SANDERS Attending Clinician Unavailable Arik BARKLEY Attending Clinician ARIK Attending Clinician Unavailable Javon GUIDRY Attending Clinician Unavailable Fred An MD Attending Clinician Doctor Unassigned, Name Attending Clinician Unavailable ARIK Admitting Clinician Unavailable Payers Payer Name Policy Type Policy Number Effective Date Expiration Date [facility] [id number] 2017 00:00:00 Problems This patient has no known problems. Allergies, Adverse Reactions, Alerts Allergy Allergy Status Severity Reaction(s) Onset Inactive Treating Comm ents Source Name Type Date Date Clinician NO KNOWN Drug Active [facility] ALLERGIE Class ity of S [facility] Medications This patient has no known medications. Procedures This patient has no known procedures. Encounters Start End Encounter Admission Attending Care Care Encounter Source Date/Time Date/Time Type Type Clinicians Facility Department ID 2019-10-17 2019-10-17 Transition Aishwarya Velazquez [id number] 00:00:00 00:00:00 of Care Zoe Jefferson [id number] [place] [id number] 2019-10-15 2019-10-15 Emergency [facility] [id number] 03:32:30 05:01:00 Jasmyne Mathews [id number] [place] [address] [id number] 2019-10-15 2019-10-15 Emergency [facility] [id number] Univers 03:32:30 05:01:00 JASMYNE [facility] 2019-09-12 2019-09-[address] [facility] [id number] Univers 14:40:00 14:40:00 Og [facility] 2019-09-12 2019-09-12 Outpatient [facility] [id number] Univers 14:40:00 14:40:00 HARRY [facility] 2019-09-06 2019-09-12 [id number] 10:25:43 10:49:57 ne Visit Ankit MULTISPEC [id number] Fred BRADY [id number] [place] [id number] AND KELLY [facility] 2019-09-11 2019-09-11 Patient Doctor [facility] [id number] 00:00:00 00:00:00 Secure Msg Unassigned, MULTISPEC [id number] [place] JOSE ANTONIO [id number] [place] [phone] AND KELLY 028 [facility] Results This patient has no known results.
[2021-06-09 15:08] LABS: SARS-COV-2 RT PCR POSITIVE (NEGATIVE)
--- NOTE | 2021-06-09 15:22 | EDPHYS ---
Physician Documentation [facility] Name: Otto Sullivan Age: 31 yrs Sex: Male : 1990 Arrival Date: 06/09/2021 Time: 13:17 Bed Waiting Private MD: ED Physician Kian French HPI: 06/09 14:09 This 31 yrs old Male presents to ER via Ambulatory with complaints of Fever. kb 14:09 The patient or guardian reports cough, that is intermittent, described as mild, flu kb symptoms, low-grade fever, myalgias. Onset: The symptoms/episode began/occurred 4 day(s) ago. Severity of symptoms: At their worst the symptoms were moderate, in the emergency department the symptoms are unchanged. Modifying factors: The symptoms are alleviated by nothing, the symptoms are aggravated by nothing. Associated signs and symptoms: Pertinent positives: fever, Pertinent negatives: chest pain, diarrhea, ear ache, nausea, rhinorrhea, sore throat, vomiting. The patient has not experienced similar symptoms in the past. The patient has not recently seen a physician. 14:10 Pt reports fever, cough, fatigue, and bodyaches for 4 days. . kb Historical: - Allergies: 13:55 No Known Allergies; iw - Home Meds: 13:55 None [Active]; iw - PMHx: 13:55 Migraines; iw ROS: 14:10 Abdomen/GI: Negative for abdominal pain, nausea, vomiting, diarrhea, and constipation. kb 14:10 Constitutional: Positive for body aches, chills, fatigue, fever, malaise. 14:10 Respiratory: Positive for cough, Negative for dyspnea on exertion, hemoptysis, orthopnea, pleurisy, shortness of breath, sputum production, wheezing. 14:10 All other systems are negative. Exam: 14:10 Constitutional: This is a well developed, well nourished patient who is awake, alert, kb and in no acute distress. Head/Face: Normocephalic, atraumatic. ENT: Moist Mucous membranes Cardiovascular: Regular rate and rhythm with a normal S1 and S2. No gallops, murmurs, or rubs. No pulse deficits. Respiratory: Respirations even and unlabored. No increased work of breathing. Talking in full sentences Skin: Warm, dry with normal turgor. Normal color. MS/ Extremity: Pulses equal, no cyanosis. Neurovascular intact. Full, normal range of motion. Neuro: Awake and alert, GCS 15, oriented to person, place, time, and situation. Moves all extremities. Normal gait. Psych: Awake, alert, with orientation to person, place and time. Behavior, mood, and affect are within normal limits. Vital Signs: 13:54 BP 117 / 74; Pulse 79; Resp 16; Temp 98.0; Pulse Ox 100% ; iw MDM: 13:57 Patient medically screened. kb 14:10 Data reviewed: vital signs, nurses notes. Data interpreted: Pulse oximetry: on room air kb is 100 %. Interpretation: normal. 15:22 Counseling: I had a detailed discussion with the patient and/or guardian regarding: the kb historical points, exam findings, and any diagnostic results supporting the discharge/admit diagnosis, lab results, the need for outpatient follow up, a family practitioner, to return to the emergency department if symptoms worsen or persist or if there are any questions or concerns that arise at home. 06/09 13:58 Order name: COVID-19/FLU A+B (Document "Date of Onset" if Symptomatic); Complete Time: kb 15:21 Administered Medications: No medications were administered Disposition: 06/10 08:52 Co-signature as Attending Physician, Kian French MD I agree with the assessment and kusum plan of care. Disposition Summary: 06/09/21 15:22 Discharge Ordered Location: Home kb Condition: Stable kb Diagnosis - Coronavirus infection, unspecified kb Followup: kb - With: Private Physician - When: 2 - 3 days - Reason: Recheck today's complaints, Continuance of care, Re-evaluation by your physician Followup: kb - With: Emergency Department - When: As needed - Reason: Worsening of condition Discharge Instructions: - Discharge Summary Sheet kb - Viral Respiratory Infection, Qrsy-Tz-Dvrb kb - COVID-19 kb Forms: - Medication Reconciliation Form kb - Thank You Letter kb - Antibiotic Education kb - Prescription Opioid Use kb Signatures: Dispatcher [employer] Xenia Saini, TOUR COORDINATOR-C MAEGAN-Kian Ariza MD MD cha Williams, Irene, RN RN iw
--- NOTE | 2021-06-09 15:22 | ER ---
Nurse's Notes [facility] Name: Otto Sullivan Age: 31 yrs Sex: Male : 1990 Arrival Date: 06/09/2021 Time: 13:17 Bed Waiting Private MD: Diagnosis: Coronavirus infection, unspecified Presentation: 06/09 13:54 Chief complaint: Patient states: has fever, cough fatigue, body aches X 3 days. iw Coronavirus screen: Client presents with at least one sign or symptom that may indicate coronavirus-19. Ebola Screen: Patient negative for fever greater than or equal to 101.5 degrees Fahrenheit, and additional compatible Ebola Virus Disease symptoms Patient denies exposure to infectious person. Patient denies travel to an Ebola-affected area in the 21 days before illness onset. No symptoms or risks identified at this time. Initial Sepsis Screen: Does the patient meet any 2 criteria? No. Patient's initial sepsis screen is negative. Does the patient have a suspected source of infection? No. Patient's initial sepsis screen is negative. Risk Assessment: Do you want to hurt yourself or someone else? Patient reports no desire to harm self or others. Onset of symptoms was June 06, 2021. 13:54 Method Of Arrival: Ambulatory iw 13:54 Acuity: MARLON 4 iw Triage Assessment: 15:28 General: Appears in no apparent distress. Behavior is calm, cooperative. iw Historical: - Allergies: 13:55 No Known Allergies; iw - Home Meds: 13:55 None [Active]; iw - PMHx: 13:55 Migraines; iw Screenin:20 Abuse screen: Denies threats or abuse. Denies injuries from another. Nutritional iw screening: No deficits noted. Tuberculosis screening: No symptoms or risk factors identified. Fall Risk None identified. Assessment: 15:00 General: Appears distressed, Behavior is calm, cooperative. General: Reports fever for iw feeling ill for fatigue for. Pain:. Neuro: Level of Consciousness is awake, alert, obeys commands, Oriented to person, place, time, situation. Cardiovascular: Patient's skin is warm and dry. Respiratory: Respiratory effort is even, unlabored, Respiratory pattern is regular, symmetrical. Derm: Skin is intact, is healthy with good turgor. Musculoskeletal: Range of motion: intact in all extremities. Vital Signs: 13:54 BP 117 / 74; Pulse 79; Resp 16; Temp 98.0; Pulse Ox 100% ; iw ED Course: 13:17 Patient arrived in ED. am2 13:54 Triage completed. iw 13:55 Arm band placed on. iw 13:57 Xenia Leiva FNP-C is [facility]. kb 13:57 Kian French MD is Attending Physician. kb 15:00 Patient has correct armband on for positive identification. iw 15:26 No provider procedures requiring assistance completed. Patient did not have IV access iw during this emergency room visit. Administered Medications: No medications were administered Outcome: 15:22 Discharge ordered by MD. kb 15:27 Discharged to iw 15:27 Condition: good 15:27 Discharge instructions given to patient, Instructed on discharge instructions, follow up and referral plans. Demonstrated understanding of instructions, follow-up care. 15:28 Patient left the ED. kb Signatures: Xenia Leiva FNP-C SEISMIC ENGINEER-Ckb Jenna Sanchez RN RN iw Yessenia Kan am2 Corrections: (The following items were deleted from the chart) 13:55 13:54 Pulse 79bpm; Resp 16bpm; Pulse Ox 100%; Temp 98.0F; iw iw
[2021-06-09 15:34] VITALS: BP 117/74; TEMP 98; O2SAT 100
== END 2021-06-09 15:28 | disposition home or self-care (01) ==
LOC: ER 13:13
DX: U07.1 COVID-19 (principal)
CPT/HCPCS: 0240U; 99281

== ENCOUNTER 2022-10-15 22:13 | Emergency (ER) | payer SELFPAY ==
--- OUTSIDE RECORDS SUMMARY | 2022-10-15 22:18 | XMS REPORT | Continuity of Care Document ---
:1990 Author Organization [facility] t Address [address] [place] [address] Care Team Providers Name Role Phone Leopoldo Alfonso DO Primary Care Physician MD AMANDA Attending Clinician Unavailable LEOPOLDO ALFONSO Attending Clinician Unavailable Zoe Velazquez RN Attending Clinician Unavailable Jasmyne Elise MD Attending Clinician JASMYNE ELISE Attending Clinician Unavailable HARRY GUIDRY Attending Clinician Unavailable Ankit An MD Attending Clinician [phone] Doctor Unassigned, [place] Attending Clinician Unavailable JASMYNE ELISE Admitting Clinician Unavailable Payers Payer Name Policy Type Policy Number Effective Date Expiration Date S ource BCBS 2 [id number] 2021 00:00:00 [employer] [place] [id number] 2017 00:00:00 Problems Condition Condition Condition Status Onset Resolution Last Treating Co mments Source Name Details Category Date Date Treatment Clinician Date Bronchitis Bronchitis Disease Active Myranda live 08-18 ybza 00:00: 00 Encounter Encounter Disease Active Garrison akin domi for 08-18 Secarltonza observatio observatio 00:00: n for n for 00 suspected suspected exposure exposure to other to other biological biological agents agents ruled out ruled out Allergies, Adverse Reactions, Alerts Allergy Allergy Status Severity Reaction(s) Onset Inactive Treating Comm ents Source Name Type Date Date Clinician NO KNOWN Drug Active [facility] Social History Social Habit Start Date Stop Date Quantity Comments Source History of tobacco Cigarette Smoker Sarah Leyva use History SDOH Sarah simmons Alcohol Frequency History SDOH Sarah simmons Alcohol Std Drinks History SDOH Sarah simmons Alcohol Binge Exposure to 2021-08-08 2021-08-18 Unable to assess Sarah Leyva SARS-CoV-2 (event) 00:00:00 09:18:00 Alcohol Comment 2021-08-18 2021-08-18 occasional Sarah vincentza 00:00:00 00:00:00 Education 2021-08-18 2021-08-18 15 Sarah Whiteza 00:00:00 00:00:00 Tobacco use and 2021-08-18 2021-08-18 Smokeless tobacco Desmond Leyva exposure 00:00:00 00:00:00 non-user Alcohol intake 2021-08-18 2021-08-18 Current drinker of Desmond Leyva 00:00:00 00:00:00 alcohol (finding) Sex [birth year] Sarahakin lozano 00:00:00 00:00:00 Smoking Status Start Date Stop Date Source Ex-smoker 2021-08-18 00:00:00 2021-08-18 00:00:00 Sarah lopez Medications Ordered Filled Start Stop Current Ordering Indication Dosage Frequency Signature Comments Components Source Medication Medication Date Date Medication? Clinician (SIG) Name Name Amoxicillin Yes [id number] 1{tbl} Take 1 Sarah -Pot 08-18 tablet by Seybold Clavulanate 00:00: mouth in 875-125 MG 00 the oral Tablet morning and 1 tablet in the evening. Benzonatate Yes [id number] 100mg Q.[id number] Take 1 Sarah (Tessalon 08-18 [id number] capsule S eybold Marko) 100 00:00: 3D (100 mg MG oral 00 total) by Capsule mouth 3 times daily as needed for cough Oseltamivir 2021- No [id number] 75mg Take 1 Sarah Phosphate 08-18 capsule Seybol d 75 MG oral 00:00: 04:59 (75 mg Capsule 00 :00 total) by mouth in the morning and 1 capsule (75 mg total) in the evening. Do all this for 5 days. predniSONE 2021- No [id number] One pill Sarah (DELTASONE) 08-18 twice Seybol d 10 MG oral 00:00: 00:00 daily for tablet 00 :00 7 days then one pill daily for 7 days Vital Signs Vital Name Observation Time Observation Value Comments Source Systolic blood pressure 2021-08-18 18:52:00 104 mm[Hg] Sarah Leyva Diastolic blood 2021-08-18 18:52:00 58 mm[Hg] Laurie Leyva pressure Heart rate 2021-08-18 18:52:00 92 /min Sarah lopez Body temperature 2021-08-18 18:52:00 36.89 Kate Anastacia Leyva Respiratory rate 2021-08-18 18:52:00 14 /min Anastacia Leyva Body height 2021-08-18 18:52:00 182.9 cm Sarah lopez Body weight 2021-08-18 18:52:00 106.142 kg Sarah lopez BMI 2021-08-18 18:52:00 31.74 kg/m2 Sarah lopez Procedures Procedure Date / Time Performed Performing Clinician Cheyenne DEWEY RAPID STREP ASSAY-LAB 2021-08-18 19:40:56 Leopoldo Alfonso TEST LS RAPID FLU ASSAY-LAB TEST 2021-08-18 19:40:56 Leopoldo Alfnoso Encounters Start End Encounter Admission Attending Care Care Encounter Source Date/Time Date/Time Type Type Clinicians Facility Department ID 2021-08-19 2021-08-19 Outpatient ISHA SARAH BARRERA [id number] Sarah 00:00:00 00:00:00 MD Sunshine CARUSO 2021-08-18 2021-08-18 Office Jason ALFONSO [id number] Sarah 14:00:00 14:00:00 Visit LEOPOLDO Leiva 350.1.13.13 Se [place] 1.2.7.2.686 [id number] 2019-10-17 2019-10-17 Transition VelazquezAishwarya [id number] 00:00:00 00:00:00 of Care Zoe Bhatty 350.1.13.10 [place] 4.2.7.2.686 [id number] 2019-10-15 2019-10-15 Emergency [facility] [id number] 03:32:30 05:01:00 Jasmyne Mathews 350.1.13.10 [place] 4.2.7.2.686 [place] [id number] 2019-10-15 2019-10-15 [facility] [id number] Univers 03:32:30 05:01:00 JASMYNE [facility] 2019-09-12 2019-09-12 Outpatient Stefania GUIDRY [facility] [id number] Univers 14:40:00 14:40:00 HARRY [facility] 2019-09-06 2019-09-12 Telemedicwalt An [facility] [id number] 10:25:43 10:49:57 ne Visit Ankit MULTISPEC 350.1.13.10 Fred BRADY [id number] [place] [id number] AND KELLY [facility] 2019-09-11 2019-09-11 Patient Doctor [facility] [id number] 00:00:00 00:00:00 Secure Msg Unassigned, MULTISPEC [id number] [place] JOSE ANTONIO 4.2.7.2.686 [place] [id number] AND MEND[place]ZA 028 [facility] Results Test Description Test Time Test Comments Results Result Comments Source RAPID FLU ASSAY-LAB TEST 2021-08-18 19:44:23 Test Item Value Reference Range Interpretation Comme nts INFLUENZA B AG, EIA (test code = 29276-3) Negative Negative A Lab Interpretation (test code = 09766-7) Abnormal Sarah Grant RAPID STREP ASSAY-LAB [id number] 19:43:48 Test Item Value Reference Range Interpretation Comments STREP GP A AG, IA (test Negative Negative Infe ction due to code = 31252-8) Strep A lorne ot be ruled-out becau se the antigen present in the sample may be below the detec tion limit of the te st. Specimen has be en sent for confir mation of negative. Lab Interpretation (test Normal code = 63229-2) Sarah Leyva
[2022-10-15] MEDS ORDERED: NA CHLORIDE 0.9% 1,000 ML ONE (23:58)
[2022-10-16 00:36] LABS: Absolute Lymphocytes (CBC) 3.2 K/uL (0.7-4.9); Hematocrit 45.1 % (39.6-49.0); Lymphocytes % 37.7 % (15.3-44.8); MCV 84.2 fL (80-100); RBC Red Blood Cell Count 5.36 M/uL (4.33-5.43)
[2022-10-16 00:38] LABS: Specific Gravity 1.029 (1.005-1.030); Urine Bilirubin NEGATIVE (Negative); Urine Blood Negative (Negative); Urine Clarity Clear (Clear); Urine Color Yellow (Yellow); Urine Glucose NEGATIVE (Negative); Urine Protein NEGATIVE (Negative); Urine Urobilinogen Normal (Normal); Urine pH 5.5 (5.0-7.0)
[2022-10-16 00:41] LABS: Protime INR 0.95
[2022-10-16 00:53] LABS: Barbiturates NEGATIVE (NEGATIVE); Benzodiazepines NEGATIVE (NEGATIVE); Cocaine NEGATIVE (NEGATIVE); METHAMPHETAM NEGATIVE (NEGATIVE); Methadone NEGATIVE (NEGATIVE); Opiates NEGATIVE (NEGATIVE); Phencyclidine NEGATIVE (NEGATIVE); THC Cannibis NEGATIVE (NEGATIVE)
[2022-10-16 01:11] LABS: ALT/SGPT 40 U/L (16-61); AST/SGOT 15 U/L (15-37); Albumin 3.9 g/dL (3.4-5.0); Alkaline Phosphatase 109 U/L (45-117); BUN Blood Urea Nitrogen 15 mg/dL (7-18); Bicarbonate 28 mEq/L (21-32); Bilirubin Direct 0.3 mg/dL (0-0.2); Bilirubin Indirect, Calculated 0.7 (0.2-0.8); Glomerular Filtration Rate 104 ml/min (=/>90); Potassium 3.7 mEq/L (3.5-5.1); Protein, Total 7.4 g/dL (6.4-8.2); Sodium Level 137 mEq/L (136-145)
[2022-10-16 01:12] LABS: Troponin High Sensitivity < 3.0 pg/mL (<58.9)
--- NOTE | 2022-10-16 01:32 | EDPHYS ---
Physician Documentation [facility] Name: Otto Sullivan Age: 32 yrs Sex: Male : 1990 Arrival Date: 10/15/2022 Time: 22:13 Bed 6 Private MD: ED Physician Gianluca Alonso HPI: 10/15 22:55 This 32 yrs old Male presents to ER via Ambulatory with complaints of Confused. cp 22:55 Patient is a 32 y/o male with PMHX significant for migraines presents to ED with cp who is concerned that patient has seemed "out of it" for past several days. Has been sleeping more, seems tired and has been "spacing out". reports they were at the store earlier today and patient reportedly forgot why they were there. Patient has been more irritable. Historical: - Allergies: 22:42 No Known Allergies; vc1 - PMHx: 22:42 Migraines; vc1 - PSHx: 22:42 None; vc1 - Social history:: Smoking status: Reported history of juuling and/or vaping. ROS: 23:00 Constitutional: Negative for body aches, chills, fever, poor PO intake. cp 23:00 Eyes: Negative for injury, pain, redness, and discharge. cp 23:00 ENT: Negative for drainage from ear(s), ear pain, sore throat, difficulty swallowing, difficulty handling secretions. 23:00 Cardiovascular: Negative for chest pain, palpitations. 23:00 Respiratory: Negative for cough, shortness of breath, wheezing. 23:00 Abdomen/GI: Negative for abdominal pain, vomiting, diarrhea, constipation. 23:00 Neuro: Negative for altered mental status, dizziness, gait disturbance, numbness, syncope, weakness. 23:00 All other systems are negative. Exam: 23:05 Constitutional: The patient appears in no acute distress, alert, awake, cp non-diaphoretic, non-toxic, well developed, well nourished. 23:05 Head/Face: Normocephalic, atraumatic. cp 23:05 Eyes: Periorbital structures: appear normal, Pupils: equal, round, and reactive to light and accomodation, Extraocular movements: intact throughout, Conjunctiva: normal, no exudate, no injection, Sclera: no appreciated abnormality, Lids and lashes: appear normal, bilaterally. 23:05 ENT: External ear(s): are unremarkable, Ear canal(s): are normal, TM's: are normal, Nose: is normal, Mouth: Lips: moist, Oral mucosa: pink and intact, moist, Posterior pharynx: is normal, airway is patent, no erythema, no exudate. 23:05 Neck: ROM/movement: is normal, is supple, without pain, no range of motions limitations, no meningismus, no nuchal rigidity. 23:05 Chest/axilla: Inspection: normal. 23:05 Cardiovascular: Rate: normal, Rhythm: regular, Edema: is not appreciated, JVD: is not appreciated. 23:05 Respiratory: the patient does not display signs of respiratory distress, Respirations: normal, no use of accessory muscles, no retractions, labored breathing, is not present, Breath sounds: are clear throughout, no decreased breath sounds, no stridor, no wheezing. 23:05 Abdomen/GI: Inspection: abdomen appears normal, Palpation: abdomen is soft and non-tender, in all quadrants. 23:05 Neuro: Orientation: to person, place \\T\\ time. Mentation: able to follow commands, slow to respond, Cerebellar function: is grossly normal, Motor: moves all fours, strength is normal, Sensation: is normal, Gait: is steady, at a normal pace, without difficulty. 23:58 ECG was reviewed by the Attending Physician. cp Vital Signs: 22:38 Pulse 96; Resp 20; Temp 97.9; Pulse Ox 100% ; Weight 99.79 kg; Height 5 ft. 11 in. ; vc1 Pain 0/10; 22:38 BP 189 / 77; vc1 22:45 BP 118 / 85; vc1 23:30 BP 126 / 79; Pulse 77; Resp 17; Pulse Ox 97% on R/A; Pain 0/10; pf1 10/16 00:30 BP 118 / 86; Pulse 61; Resp 16; Pulse Ox 98% on R/A; Pain 0/10; pf1 01:30 BP 111 / 83; Pulse 57; Resp 16; Temp 98; Pulse Ox 97% on R/A; Pain 0/10; pf1 10/15 22:38 Body Mass Index 30.68 (99.79 kg, 180.34 cm) vc1 10/15 22:38 Pain Scale: Adult vc1 23:30 Pain Scale: Adult pf1 10/16 00:30 Pain Scale: Adult pf1 01:30 Pain Scale: Adult pf1 MDM: 10/15 22:39 Patient medically screened. 10/16 01:32 Data reviewed: vital signs, nurses notes, lab test result(s), EKG, radiologic studies, cp CT scan, plain films. 01:32 Differential diagnosis: viral Infection, bacterial infection, bronchitis, pneumonia cp meningitis, sinusitis, TIA, CVA, illegal drug use, ETOH. I considered the following discharge prescriptions or medication management in the emergency department Medications were administered in the Emergency Department. See MAR. Test considered but Not performed: MRI: brain. Historians other than the Patient: Spouse/Significant Other: provides HPI. Counseling: I had a detailed discussion with the patient and/or guardian regarding: the historical points, exam findings, and any diagnostic results supporting the discharge/admit diagnosis, lab results, radiology results, the need for outpatient follow up, a family practitioner, to return to the emergency department if symptoms worsen or persist or if there are any questions or concerns that arise at home. Response to treatment: the patient's symptoms have mildly improved after treatment, and as a result, I will discharge patient. 10/15 22:48 Order name: Acetaminophen 10/15 22:48 Order name: Basic Metabolic Panel 10/15 22:48 Order name: CBC with Diff; Complete Time: 00:43 10/16 00:43 Interpretation: Reviewed. 10/15 22:48 Order name: ETOH Level; Complete Time: 00:43 10/15 22:48 Order name: Hepatic Function 10/16 01:18 Interpretation: Normal except: BILID 0.3. 10/15 22:48 Order name: PT-INR; Complete Time: 00:43 10/15 22:48 Order name: Ptt, Activated; Complete Time: 00:43 10/15 22:48 Order name: Salicylate; Complete Time: 00:43 10/16 00:43 Interpretation: Reviewed. 10/15 22:48 Order name: Urinalysis w/ reflexes; Complete Time: 00:43 10/15 22:48 Order name: Urine Drug Screen; Complete Time: 01:18 10/15 22:48 Order name: Troponin High Sensitivity 10/15 22:55 Order name: Glucose, Ancillary Testing; Complete Time: 00:43 EDMS 10/15 22:48 Order name: CT Head Brain wo Cont cp 10/15 22:48 Order name: EKG; Complete Time: 22:49 cp 10/15 22:48 Order name: EKG - Nurse/Tech; Complete Time: 00:04 cp 10/15 22:48 Order name: IV Saline Lock; Complete Time: 00:04 cp 10/15 22:48 Order name: Labs collected and sent; Complete Time: 00:04 cp 10/15 22:48 Order name: Suicide Screening ([place]); Complete Time: 00:04 cp EC/11 23:58 Rate is 64 beats/min. Rhythm is regular. OH interval is normal. QRS interval is normal. cp QT interval is normal. T waves are Inverted in lead aVR. Interpreted by me. Reviewed by me. Administered Medications: 10/16 00:00 Drug: NS 0.9% IV 1000 ml Route: IV; Rate: 1 bolus; Site: right antecubital; pf1 00:41 Follow up: Response: No adverse reaction; Marked relief of symptoms pf1 01:00 Follow up: IV Status: Completed infusion; IV Intake: 1000ml pf1 01:33 Drug: Rocephin IV 1 grams Route: IV; Rate: calculated rate; Site: right forearm; aa9 01:33 Follow up: Response: No adverse reaction; IV Status: Completed infusion; IV Intake: [id number] Disposition: 04:07 Co-signature as Attending Physician, Gianluca Alonso MD I reviewed the patient's care rn provided by the Advanced Practice Provider and agree with the diagnosis and treatment plan. Disposition Summary: 10/16/22 01:32 Discharge Ordered Location: Home cp Problem: new cp Symptoms: have improved cp Condition: Stable cp Diagnosis - Other acute sinusitis cp Followup: cp - With: Private Physician - When: 2 - 3 days - Reason: Recheck today's complaints Discharge Instructions: - Discharge Summary Sheet cp - Sinusitis, Adult cp Forms: - Medication Reconciliation Form cp - Thank You Letter cp - Antibiotic Education cp - Prescription Opioid Use cp Prescriptions: - Flonase Allergy Relief 50 mcg/actuation Nasal spray, suspension - spray 1 spray by INTRANASAL route daily as needed for allergy symptoms; cp administer into each nostril; 1 unit; Refills: 0, Product Selection Permitted - Augmentin 875-125 mg Oral Tablet - take 1 tablet by ORAL route every 12 hours for 10 days; 20 tablet; Refills: 0, cp Product Selection Permitted - Zyrtec 10 mg Oral Tablet - take 1 tablet by ORAL route once daily As needed; 20 tablet; Refills: 0, cp Product Selection Permitted Signatures: Dispatcher [employer] EDGianluca Cabral MD MD rn Page, Corey, PA PA cp Calcote, Vanessa, RN RN vc1 Ene Gamboa RN RN aa9 Isabelle zimmer RN RN pf1
--- NOTE | 2022-10-16 01:32 | ER ---
Nurse's Notes [facility] Name: Otto Sullivan Age: 32 yrs Sex: Male : 1990 Arrival Date: 10/15/2022 Time: 22:13 Bed 6 Private MD: Diagnosis: Other acute sinusitis Presentation: 10/15 22:38 Chief complaint: Spouse and/or significant other states: "He's been having episodes vc1 where he's really tired and extremely irritable. We were at the store and he got confused he didn't remember why we were there. He also has been talking slower.". Coronavirus screen: Client denies travel out of the [place] in the last 14 days. At this time, the client does not indicate any symptoms associated with coronavirus-19. Ebola Screen: Patient negative for fever greater than or equal to 101.5 degrees Fahrenheit, and additional compatible Ebola Virus Disease symptoms Patient denies exposure to infectious person. Patient denies travel to an Ebola-affected area in the 21 days before illness onset. No symptoms or risks identified at this time. Initial Sepsis Screen: Does the patient meet any 2 criteria? No. Patient's initial sepsis screen is negative. Does the patient have a suspected source of infection? No. Patient's initial sepsis screen is negative. Risk Assessment: Do you want to hurt yourself or someone else? Patient reports no desire to harm self or others. Onset of symptoms is unknown. 22:38 Method Of Arrival: Ambulatory vc1 22:38 Acuity: MARLON 3 vc1 Historical: - Allergies: 22:42 No Known Allergies; vc1 - PMHx: 22:42 Migraines; vc1 - PSHx: 22:42 None; vc1 - Social history:: Smoking status: Reported history of juuling and/or vaping. Screenin:44 Abuse screen: Denies threats or abuse. Nutritional screening: No deficits noted. vc1 Tuberculosis screening: No symptoms or risk factors identified. 23:00 [facility] ED Fall Risk Assessment (Adult) History of falling in the last 3 months, pf1 including since admission No falls in past 3 months (0 pts) Confusion or Disorientation No (0 pts) Intoxicated or Sedated No (0 pts) Impaired Gait No (0 pts) Mobility Assist Device Used No (0 pt) Altered Elimination No (0 pt) Score/Fall Risk Level 0 - 2 = Low Risk. Assessment: 23:30 General: Appears in no apparent distress. comfortable, well groomed, well developed, pf1 Behavior is calm, cooperative, appropriate for age, quiet, Patient reports confusion while at the grocery store, onset 1999. Patient C/O feeling irritated with fatigue x 3 days. Patient stated lost 15 lbs over 1.5 weeks. Patient state cut sugar out of his diet.. 23:30 Pain: Denies pain. Neuro: Level of Consciousness is awake, alert, obeys commands, pf1 Oriented to person, place, time, situation, Reports confusion,onset 1999, that lasted for approximately 30 minutes.. Cardiovascular: No deficits noted. Capillary refill < 3 seconds Patient's skin is warm and dry. Respiratory: No deficits noted. Airway is patent Trachea midline Respiratory effort is even, unlabored, Respiratory pattern is regular, symmetrical, Breath sounds are clear bilaterally. GI: No deficits noted. No signs and/or symptoms were reported involving the gastrointestinal system. : No deficits noted. No signs and/or symptoms were reported regarding the genitourinary system. EENT: No deficits noted. No signs and/or symptoms were reported regarding the EENT system. Derm: No deficits noted. No signs and/or symptoms reported regarding the dermatologic system. Musculoskeletal: No deficits noted. No signs and/or symptoms reported regarding the musculoskeletal system. 10/16 00:30 Reassessment: Patient appears in no apparent distress at this time. Patient and/or pf1 family updated on plan of care and expected duration. Pain level reassessed. Patient is alert, oriented x 3, equal unlabored respirations, skin warm/dry/pink. Patient denies pain at this time. Patient states feeling better. Patient states symptoms have improved. 01:30 Reassessment: Patient appears in no apparent distress at this time. Patient and/or pf1 family updated on plan of care and expected duration. Pain level reassessed. Patient is alert, oriented x 3, equal unlabored respirations, skin warm/dry/pink. Patient states feeling better. Patient states symptoms have improved. Vital Signs: 10/15 22:38 Pulse 96; Resp 20; Temp 97.9; Pulse Ox 100% ; Weight 99.79 kg; Height 5 ft. 11 in. ; vc1 Pain 0/10; 22:38 BP 189 / 77; vc1 22:45 BP 118 / 85; vc1 23:30 BP 126 / 79; Pulse 77; Resp 17; Pulse Ox 97% on R/A; Pain 0/10; pf1 10/16 00:30 BP 118 / 86; Pulse 61; Resp 16; Pulse Ox 98% on R/A; Pain 0/10; pf1 01:30 BP 111 / 83; Pulse 57; Resp 16; Temp 98; Pulse Ox 97% on R/A; Pain 0/10; pf1 10/15 22:38 Body Mass Index 30.68 (99.79 kg, 180.34 cm) vc1 10/15 22:38 Pain Scale: Adult vc1 23:30 Pain Scale: Adult pf1 10/16 00:30 Pain Scale: Adult pf1 01:30 Pain Scale: Adult pf1 ED Course: 10/15 22:18 Patient arrived in ED. ja2 22:19 Kian Kwan PA is PHCP. cp 22:19 Gianluca Alonso MD is Attending Physician. cp 22:42 Triage completed. vc1 22:44 Arm band placed on right wrist. vc1 23:09 CT Head Brain wo Cont In Process Unspecified. EDMS 23:30 Patient has correct armband on for positive identification. Bed in low position. Call pf1 light in reach. 10/16 00:00 No provider procedures requiring assistance completed. Inserted saline lock: 20 gauge pf1 in right antecubital area, using aseptic technique. Blood collected. 00:05 Acetaminophen Sent. pf1 00:05 Basic Metabolic Panel Sent. pf1 00:05 CBC with Diff Sent. pf1 00:05 ETOH Level Sent. pf1 00:05 Hepatic Function Sent. pf1 00:05 PT-INR Sent. pf1 00:05 Ptt, Activated Sent. pf1 00:05 Salicylate Sent. pf1 01:15 Isabelle zimmer, RN is Primary Nurse. pf1 01:50 IV discontinued, intact, bleeding controlled, No redness/swelling at site. Pressure pf1 dressing applied. Administered Medications: 00:00 Drug: NS 0.9% IV 1000 ml Route: IV; Rate: 1 bolus; Site: right antecubital; pf1 00:41 Follow up: Response: No adverse reaction; Marked relief of symptoms pf1 01:00 Follow up: IV Status: Completed infusion; IV Intake: 1000ml pf1 01:33 Drug: Rocephin IV 1 grams Route: IV; Rate: calculated rate; Site: right forearm; aa9 01:33 Follow up: Response: No adverse reaction; IV Status: Completed infusion; IV Intake: [id number] Medication: 01:50 VIS not applicable for this client. pf1 Intake: 01:00 IV: 1000ml; Total: 1000ml. pf1 01:33 IV: 10ml; Total: 1010ml. aa9 Outcome: 01:32 Discharge ordered by MD. cp 01:49 Discharged to home ambulatory, with family. pf1 01:49 Condition: stable 01:49 Discharge instructions given to patient, Instructed on discharge instructions, follow up and referral plans. Demonstrated understanding of instructions, follow-up care, medications, Prescriptions given X 3. 01:50 Patient left the ED. pf1 Signatures: Dispatcher [employer] EDMS Kian Kwan PA PA cp Alexander, Jessica ja2 Calcote, Vanessa, RN RN vc1 Ene Gamboa RN RN aa9 Isabelle zimmer RN RN pf1
[2022-10-16] MEDS ORDERED: CEFTRIAXONE 1000 MG/VIAL ONE (01:34)
[2022-10-16 02:04] LABS: Glucose Level 92 mg/dL (74-106)
[2022-10-16 02:24] VITALS: BP 111/83; TEMP 98; O2SAT 97
--- NOTE | 2022-10-16 05:33 | EKG ---
Test Date: 2022-10-15 Test Time: 23:52:51 [place] Technician: GENNA MEASUREMENT RESULTS: Intervals: Rate: 64 OH: 174 QRSD: 96 QT: 412 QTc: 425 [place]: P: 47 OH: 174 QRS: 46 T: 53 INTERPRETIVE STATEMENTS: Normal sinus rhythm Normal ECG Compared to ECG 11/04/2019 19:55:22 No significant changes Electronically Signed On 10-16-22 05:32:46 CDT by Deejay Bone
--- NOTE | 2022-10-20 09:19 | RAD REPORT ---
EXAM DESCRIPTION: CT - Head Brain Wo Cont - 10/15/2022 11:33 pm CLINICAL HISTORY: The patient is 32 years old and is Male; CONFUSED [facility] MAIN TECHNIQUE: Axial computed tomography images of the head/brain without intravenous contrast. Sagitt al and coronal reformatted images were created and reviewed. This CT exam was performed using one o r more of the following dose reduction techniques: automated exposure control, adjustment of the mA and/or kV according to patient size, and/or use of iterative reconstruction technique. COMPARISON: No relevant prior studies available. FINDINGS: BRAIN: Unremarkable. No extra-axial fluid collection. No intracranial hemorrhage. No transtentorial herniation. No focal garcia-white matter differentiation abnormality. MIDLINE SHIFT: No midline shift. VENTRICLES: Unremarkable. No ventriculomegaly. BONES/JOINTS: Moderate-sized left-sided nasal septal spur. No fracture of the calvarium or visualized facial bones. SOFT TISSUES: Diffuse fatty atrophy versus congenital or surgical absence of the left parotid gland incidentally noted. SINUSES: Near complete opacification of the left maxillary sinus. Partial opacification of the bilate ral ethmoid air cells MASTOID AIR CELLS: Unremarkable as visualized. No mastoid effusion. IMPRESSION: 1. Left maxillary and bilateral ethmoid air cell paranasal sinus disease. 2. No acute intracranial abnormality. Electronically signed by: Johnathon Alarcon MD 10/15/2022 11:24 PM CDT Due to temporary technical issues with the PACS/Fluency reporting system, reports are being signed by the in house radiologist without review as a courtesy to ensure prompt reporting. The interpreting r adiologist is fully responsible for the content of the report.
== END 2022-10-16 01:50 | disposition home or self-care (01) ==
LOC: ER 22:13
DX: J01.80 Other acute sinusitis (principal)
CPT/HCPCS: 36415; 70450; 80048; 80076; 80307; 81003; 82947; 84484; 85025; 85610; 85730; 93005; 96361; 96374; 99284; G0480; J0696; J7030

== ENCOUNTER 2023-09-09 00:51 | Emergency (ER) | payer OTHER, SELFPAY ==
--- OUTSIDE RECORDS SUMMARY | 2023-09-09 00:55 | XMS REPORT | Continuity of Care Document ---
Author Name Unknown Address [address] [facility] [address] [place] [address] [facility] thconnect Address [address] [facility] [place] [address] Care Team Providers Care Editor Newspaper Name Role Phone Leopoldo Alfonso DO Primary Care Physician [phone] LEOPOLDO ALFONSO Attending Clinician Unavailable MD AMANDA Attending Clinician Unavailab Cornelio SANDERS, Zoe Attending Clinician Unavailable JASMYNE ELISE Attending Clinician Unavailable Jasmyne Elise MD Attending Clinician [phone] HARRY GUIDRY Attending Clinician Unavail Ankit Dahl MD Attending Clinician + Doctor Unassigned, [place] Attending Clinician U navailable JASMYNE ELISE Admitting Clinician Unavailable Payers Payer Name Policy Type Policy Number Effective Date Expirati on Date Source [facility] 2 [id number] 2021 00:00:00 [facility] [id number] 2017 00:00:00 Problems Condition Name Condition Details Condition Category Status Onset Date Resolution Date Last Treatment Date Treating Clinician Comments Source Bronchitis Bronchitis Disease Active 08-18 00:00: 00 Sarah Leyva Encounter for observatio n for suspected exposure to other biological agents ruled out Encounter for observatio n for suspected exposure to other biological agents ruled out Disease Active 08-18 00:00: 00 Sarah Leyva Allergies, Adverse Reactions, Alerts Allergy Name Allergy Type Status Severity Reaction(s) Onset Date Inactive Date Treating Clinician Comments Source NO KNOWN ALLERGIE S Drug Class Active [facility] Social History Social Habit Start Date Stop Date Quantity Comments Source History of tobacco use Cigarette Smoker Sarah mendenhall History SDOH Alcohol Frequency Sarah Lorenzo bold History SDOH Alcohol Std Drinks Sarah lozano History SDOH Alcohol Binge Sarah Leyva Exposure to SARS-CoV-2 (event) 2021-08-08 00:00:00 2021-08-18 09:18:00 Unable to assess Sarah Leyva Alcohol Comment 2021-08-18 00:00:00 2021-08-18 00:00:00 occasional Sarah Leyva Education 2021-08-18 00:00:00 2021-08-18 00:00:00 15 Sarah Leyva Tobacco use and exposure 2021-08-18 00:00:00 2021-08-18 00:00:00 Smokeless tobacco non-user Sarah Leyva Alcohol intake 2021-08-18 00:00:00 2021-08-18 00:00:00 Current drinker of alcohol (finding) Sarah Leyva Sex Ass[birth year] At 1990 00:00:00 1990 00[birth year]:00 Sarah Leyva Smoking Status Start Date Stop Date Source Ex-smoker 2021-08-18 00:00:00 2021-08-18 00:00:00 Myranda Leyva Medications Ordered Medication Name Filled Medication Name Start Date Stop Date Current Medication? Ordering Clinician Indication Dosage Frequency Signature (SIG) Comments Components Source Amoxicillin -Pot Clavulanate 542-125 MG oral Tablet 08-18 00:00: 00 Yes [id number] 1{tbl} Take 1 tablet by mouth in the morning and 1 tablet in the evening. Sarah Leyva Benzonatate (Tessalon Perles) 100 MG oral Capsule 08-18 00:00: 00 Yes [id number] 100mg [id number] 3D Take 1 capsule (100 mg total) by mouth 3 times daily as needed for cough Sarah Leyva Oseltamivir Phosphate 75 MG oral Capsule 08-18 00:00: 00 08-24 04:59 :00 No [id number] 75mg Take 1 capsule (75 mg total) by mouth in the morning and 1 capsule (75 mg total) in the evening. Do all this for 5 days. Sarah Leyva predniSONE (DELTASONE) 10 MG oral tablet 08-18 00:00: 00 08-18 00:00 :00 No [id number] One pill twice daily for 7 days then one pill daily for 7 days Sarah Leyva Vital Signs Vital Name Observation Time Observation Value Comments S ource Systolic blood pressure 2021-08-18 18:52:00 104 mm[Hg] Sarah Leyva Diastolic blood pressure 2021-08-18 18:52:00 58 mm[Hg] Sarah Shi ld Heart rate 2021-08-18 18:52:00 92 /min Laurie Leyva Body temperature 2021-08-18 18:52:00 36.89 Kate Sarah Leyva Respiratory rate 2021-08-18 18:52:00 14 /min Sarah Leyva Body height 2021-08-18 18:52:00 182.9 cm Anastacia Leyva Body weight 2021-08-18 18:52:00 106.142 kg Anastacia Leyva BMI 2021-08-18 18:52:00 31.74 kg/m2 Anastacia Leyva Procedures Procedure Date / Time Performed Performing Clinicia n Source MACO RAPID STREP ASSAY-LAB TEST 2021-08-18 19:40:56 Leopoldo Alfonso RAPID FLU ASSAY-LAB TEST 2021-08-18 19:40:56 Leopoldo Alfonso Encounters Start Date/Time End Date/Time Encounter Type Admission Type Attending Clinicians Care Facility Care Department Encounter ID Source 2022-11-26 00:00:00 2022-11-26 00:00:00 Outpatient LEOPOLDO ALFONSO SARAH BARRERA [id number] Sarah carltonza 2021-08-19 00:00:00 2021-08-19 00:00:00 Outpatient MD SARAH ACEVEDO [id number] Sarah blake 2021-08-18 14:00:00 2021-08-18 14:00:00 Office Visit KARMEN LEOPOLDO Jason Leiva 1.0.114 [id number] Sarah carltonza 2019-10-17 00:00:00 2019-10-17 00:00:00 Transition of Care Zoe Velazquez 1..114 [id number] 2019-10-15 03:32:30 2019-10-15 05:01:00 Emergency X JASMYNE ELISE [facility] ERT [id number] [facility] 2019-10-15 03:32:30 2019-10-15 05:01:00 Emergency Elise Jasmyne [facility] 1.0.114 [id number] 2019-09-12 14:40:00 2019-09-12 14:40:00 Outpatient HARRY AMBROCIO [facility] [id number] [facility] 2019-09-06 10:25:43 2019-09-12 10:49:57 Telemedici ne Visit Ankit An [facility] 1..114 [id number] 2019-09-11 00:00:00 2019-09-11 00:00:00 Patient Secure Msg Doctor Unassigned, [place] [facility] [id number] Results Test Description Test Time Test Comments Results Result Co mments Source Sarah Grant RAPID STREP ASSAY-LAB [id number] 19:43:48* Test Item Value Reference Range Interpretation Comme nts STREP GP A AG, IA (test code = 14682-3) Negative Negative Infection due to Strep A cannot be ruled-out because the antigen present in the sample may be below the detection limit of the test. Specimen has been sent for confirmation of negative. Lab Interpretation (test code = 71144-1) Normal Sarah Leyva
[2023-09-09] MEDS ORDERED: DIPHENOX/ATROP SULF 1 TAB PO ONE (01:45)
[2023-09-09] MEDS ORDERED: NA CHLORIDE 0.9% 1,000 ML ONE (01:45)
[2023-09-09 01:57] LABS: Absolute Eosinophils 0.1 K/uL (0-0.5); Absolute Lymphocytes (CBC) 1.6 K/uL (0.7-4.9); Absolute Neutrophil 3.3 K/uL (1.8-8.0); Basophils % 0.4 % (0-1.3); Eosinophils % 1.9 % (0-4.4); Hematocrit 46.7 % (39.6-49.0); Hemoglobin 15.7 g/dL (13.6-17.9); Lymphocytes % 26.9 % (15.3-44.8); MCH 28.3 pg (27.0-35.0); MCHC 33.6 g/dL (32.0-36.0); MCV 84.3 fL (80-100); Monocytes % 16.3 % (3.3-12.3); Neutrophils % 54.5 % (41.7-73.7); Nucleated Red Blood Cells % 0.1 % (0-0); Platelets 280 thou/uL (152-406); RBC Red Blood Cell Count 5.53 M/uL (4.33-5.43); Red Cell Distribution Width 13.8 % (12.1-15.2)
[2023-09-09 02:05] LABS: Albumin 3.6 g/dL (3.4-5.0); Albumin/Globulin Ratio 0.9 (1.1-1.8); Anion Gap 5.5 mEq/L (5.0-15.0); Bilirubin Total 1.1 mg/dL (0.2-1.0); C-Reactive Protein 11.9 mg/L (<3.00); Globulin 3.8 g/dL (2.3-3.5); Potassium 3.5 mEq/L (3.5-5.1); Protein, Total 7.4 g/dL (6.4-8.2)
--- NOTE | 2023-09-09 02:53 | EDPHYS ---
Physician Documentation [facility] Name: Otto Sullivan Age: 33 yrs Sex: Male : 1990 Arrival Date: 09/09/2023 Time: 00:51 Bed 6 Private MD: ED Physician Shaw Pollock HPI: 09/08 01:03 This 33 yrs old Male presents to ER via Unassigned with complaints of sp4 Diarrhea. 03:10 33-year-old male presents with 5 days of watery diarrhea that is profuse. Today patient sp4 saw a little bit of blood in her diarrhea became concerned arrived here for evaluation. Patient reports she went to [facility] ago head blood work and urinalysis that were basically. CT scan was unremarkable . . Historical: - Allergies: 01:05 No Known Allergies; cm10 - Home Meds: 01:04 sertraline oral [Active]; cm10 - PMHx: 01:04 Migraines; Anxiety; cm10 - Immunization history:: Adult Immunizations up to date. - Infectious Disease History:: Denies. - Social history:: Smoking status: Reported history of juuling and/or vaping. - Family history:: not pertinent. ROS: 03:13 Constitutional: Negative for fever, chills, and weight loss, positive for watery sp4 diarrhea 03:13 All other systems are negative, Exam: 03:13 Constitutional: This is a well developed, well nourished patient who is awake, alert, sp4 and in no acute distress. Head/Face: Normocephalic, atraumatic. Eyes: Pupils equal round and reactive to light, extra-ocular motions intact. Lids and lashes normal. Conjunctiva and sclera are not injected. Cornea within normal limits. Periorbital areas with no swelling, redness, or edema. ENT: Nares patent. No nasal discharge, no septal abnormalities noted. Tympanic membranes are normal and external auditory canals are clear. Oropharynx with no redness, swelling, or masses, exudates, or evidence of obstruction, uvula midline. Mucous membranes moist. Neck: Trachea midline, no thyromegaly or masses palpated, and no cervical lymphadenopathy. Supple, full range of motion without nuchal rigidity, or vertebral point tenderness. Chest/axilla: Normal chest wall appearance and motion. Nontender with no deformity. No lesions are appreciated. Cardiovascular: Regular rate and rhythm with a normal S1 and S2. No gallops, murmurs, or rubs. Normal PMI, no JVD. No pulse deficits. Respiratory: Lungs have equal breath sounds bilaterally, clear to auscultation and percussion. No rales, rhonchi or wheezes noted. No increased work of breathing, no retractions or nasal flaring. Abdomen/GI: Soft, with normal bowel sounds. No distension or tympany. No guarding or rebound. No evidence of tenderness throughout. Back: No spinal tenderness. No costovertebral tenderness. Skin: Warm, dry with normal turgor. Normal color with no rashes, no lesions, and no evidence of cellulitis. MS/ Extremity: Pulses equal, no cyanosis. Neurovascular intact. Full, normal range of motion. Neuro: Awake and alert, GCS 15, oriented to person, place, time, and situation. Cranial nerves II-XII grossly intact. Motor strength 5/5 in all extremities. Sensory grossly intact. Psych: Awake, alert, with orientation to person, place and time. Behavior, mood, and affect are within normal limits Vital Signs: 01:03 BP 112 / 86; Pulse 84; Resp 16; Temp 97.6; Pulse Ox 98% ; Weight 98.6 kg; Height 5 ft. cm10 11 in. ; Pain 0/10; 01:03 Body Mass Index 30.32 (98.60 kg, 180.34 cm) cm10 01:03 Pain Scale: Adult cm10 Nini Coma Score: 03:13 Eye Response: spontaneous(4). Motor Response: obeys commands(6). Verbal Response: sp4 oriented(5). Total: 15. MDM: 01:11 Patient medically screened. sp4 03:16 Differential diagnosis: Nonspecific abd pain, gastritis, viral gastroenteritis, sp4 gastroenteritis. Data reviewed: vital signs, nurses notes, lab test result(s), electrolytes, hepatic panel. ED course: Patient has signs of moderate to significant gastroenteritis with profuse watery diarrhea and elevated CRP. Will cover with cephalexin and Flagyl also Lomotil as needed diarrhea. Will advise clear liquid diet for 24 hours. In case of protracted diarrhea will advised to see primary care physician in 1 to 2 weeks for stool submission to the lab. . 09/08 01:10 Order name: CBC with Diff; Complete Time: 02:46 sp4 09/08 01:10 Order name: CMP; Complete Time: 02:46 sp4 09/08 01:10 Order name: Lipase; Complete Time: 02:46 sp4 09/08 01:11 Order name: CRP; Complete Time: 02:46 sp4 09/08 01:10 Order name: IV Saline Lock; Complete Time: 01:40 sp4 09/08 01:10 Order name: Labs collected and sent; Complete Time: 01:40 sp4 Administered Medications: 01:53 Drug: Diphenoxylate-Atropine PO 2 tabs PO once Route: PO; lg3 01:58 Not Given (Patient Refused): ns 0.9% 1000 ml IV at 1 bolus Per protocol; 1000 mL bolus jb4 Disposition Summary: 09/09/23 02:52 Discharge Ordered Notes: Location: Home sp4 Problem: new sp4 Symptoms: have improved sp4 Condition: Stable sp4 Diagnosis - Diarrhea, unspecified sp4 - Acute gastroenteritis sp4 Followup: sp4 - With: Private Physician - When: 10 - 14 days - Reason: Recheck today's complaints Discharge Instructions: - Discharge Summary Sheet sp4 - Diarrhea, Adult, [id number] sp4 Forms: - Patient Portal Instructions sp4 Prescriptions: - Cephalexin 500 mg Oral Capsule - take 1 capsule ORAL route every 12 hours for 10 days; 20 capsule; Refills: 0, sp4 Product Selection Permitted - Flagyl 500 mg Oral Tablet - take 1 tablet ORAL route every 8 hours for 10 days; 30 tablet; Refills: 0, sp4 Product Selection Permitted - Lomotil 2.5-0.025 mg Oral tablet - take 1 tablet ORAL route every 6 hours As needed PRN diarrhea; 30 tablet; sp4 Refills: 0, Product Selection Permitted Signatures: Dispatcher [employer] William Ivan RN RN jb4 Lisa Joe RN RN lg3 Shaw Pollock MD MD sp4 Alena Oliver RN RN cm10 Corrections: (The following items were deleted from the chart) 01:10 01:10 CBC+H.LAB.BRZ ordered. EDMS EDMS 01:10 01:10 COMPREHENSIVE METABOLIC PANEL+C.LAB.BRZ ordered. EDMS EDMS 01:10 01:10 LIPASE+C.LAB.BRZ ordered. EDMS EDMS 01:11 01:11 Abdomen Pelvis W Con+CT.RAD.BRZ ordered. EDMS EDMS
--- NOTE | 2023-09-09 02:53 | ER ---
Nurse's Notes [facility] Name: Otto Sullivan Age: 33 yrs Sex: Male : 1990 Arrival Date: 09/09/2023 Time: 00:51 Bed 6 Private MD: Diagnosis: Diarrhea, unspecified;Acute gastroenteritis Presentation: 09/08 01:03 Chief complaint: Patient states: Diarrhea onset Wednesday. Pt states that he is having cm10 diarrhea every 10 minutes and is now seeing blood. Denies any pain, nausea or vomiting. Coronavirus screen: Client denies travel out of the [place] in the last 14 days. At this time, the client does not indicate any symptoms associated with coronavirus-19. Ebola Screen: Patient denies travel to an Ebola-affected area in the 21 days before illness onset. No symptoms or risks identified at this time. Initial Sepsis Screen: Does the patient meet any 2 criteria? No. Patient's initial sepsis screen is negative. Does the patient have a suspected source of infection? No. Patient's initial sepsis screen is negative. Risk Assessment: Do you want to hurt yourself or someone else? Patient reports no desire to harm self or others. Onset of symptoms was September 09, 2023. 01:03 Method Of Arrival: Ambulatory cm10 01:03 Acuity: MARLON 3 cm10 Historical: - Allergies: 01:05 No Known Allergies; cm10 - Home Meds: 01:04 sertraline oral [Active]; cm10 - PMHx: 01:04 Migraines; Anxiety; cm10 - Immunization history:: Adult Immunizations up to date. - Infectious Disease History:: Denies. - Social history:: Smoking status: Reported history of juuling and/or vaping. - Family history:: not pertinent. Screenin:03 [facility] ED Fall Risk Assessment (Adult) History of falling in the last 3 months, jb4 including since admission No falls in past 3 months (0 pts) Confusion or Disorientation No (0 pts) Intoxicated or Sedated No (0 pts) Impaired Gait No (0 pts) Mobility Assist Device Used No (0 pt) Altered Elimination No (0 pt) Score/Fall Risk Level 0 - 2 = Low Risk Oriented to surroundings, Maintained a safe environment. Abuse screen: Denies threats or abuse. Nutritional screening: No deficits noted. Tuberculosis screening: No symptoms or risk factors identified. Assessment: 01:00 General: Appears in no apparent distress. uncomfortable, Behavior is calm, cooperative, jb4 appropriate for age. Pain: Denies pain. Neuro: Level of Consciousness is awake, alert, obeys commands, Oriented to person, place, time, situation. Cardiovascular: Patient's skin is warm and dry. Respiratory: Airway is patent Respiratory effort is even, unlabored, Respiratory pattern is regular, symmetrical. GI: Reports diarrhea. : No signs and/or symptoms were reported regarding the genitourinary system. EENT: No signs and/or symptoms were reported regarding the EENT system. Derm: Skin is intact, Skin is pink, warm \T\ dry. 02:00 Reassessment: Patient appears in no apparent distress at this time. Patient and/or jb4 family updated on plan of care and expected duration. Pain level reassessed. Patient is alert, oriented x 3, equal unlabored respirations, skin warm/dry/pink. 03:03 Reassessment: Patient appears in no apparent distress at this time. Patient and/or jb4 family updated on plan of care and expected duration. Pain level reassessed. Patient is alert, oriented x 3, equal unlabored respirations, skin warm/dry/pink. Vital Signs: 01:03 BP 112 / 86; Pulse 84; Resp 16; Temp 97.6; Pulse Ox 98% ; Weight 98.6 kg; Height 5 ft. cm10 11 in. ; Pain 0/10; 01:03 Body Mass Index 30.32 (98.60 kg, 180.34 cm) cm10 01:03 Pain Scale: Adult cm10 [place] Coma Score: 03:13 Eye Response: spontaneous(4). Motor Response: obeys commands(6). Verbal Response: sp4 oriented(5). Total: 15. ED Course: 00:56 Patient arrived in ED. gm2 01:03 Shaw Pollock MD is Attending Physician. sp4 01:04 Triage completed. cm10 01:05 Arm band placed on Patient placed in an exam room, on a stretcher, on pulse oximetry. cm10 01:40 CBC with Diff Sent. ty 01:40 CMP Sent. ty 01:40 Lipase Sent. ty 01:40 Initial lab(s) drawn, by me, sent to lab. Inserted saline lock: 20 gauge in right upper ty arm, using aseptic technique. Blood collected. 03:03 Patient has correct armband on for positive identification. Bed in low position. Call jb4 light in reach. Side rails up X 1. Provided Education on: discharge instructions. 03:03 No provider procedures requiring assistance completed. IV discontinued, intact, jb4 bleeding controlled, No redness/swelling at site. Pressure dressing applied. Administered Medications: 01:53 Drug: Diphenoxylate-Atropine PO 2 tabs PO once Route: PO; lg3 01:58 Not Given (Patient Refused): ns 0.9% 1000 ml IV at 1 bolus Per protocol; 1000 mL bolus jb4 Medication: 03:03 VIS not applicable for this client. jb4 Outcome: 02:52 Discharge ordered by . sp4 03:03 Discharged to home ambulatory, jb4 03:03 Condition: stable 03:03 Discharge instructions given to patient, Instructed on discharge instructions, follow up and referral plans. medication usage, Demonstrated understanding of instructions, follow-up care, medications, Prescriptions given X 3, 03:05 Patient left the ED. jb4 Signatures: William Santana RN RN jb4 Lisa Joe RN RN lg3 Shaw Pollock MD MD sp4 Alena Oliver RN RN cm10 Gaye De La Paz [address] [place] Corrections: (The following items were deleted from the chart) 01:58 01:53 NS 0.9% IV 1000 ml IV at 1 bolus in right hand lg3 jb4
== END 2023-09-09 03:05 | disposition home or self-care (01) ==
LOC: ER 00:51
DX: K52.9 Noninfective gastroenteritis and colitis, unspecified (principal)
CPT/HCPCS: 36415; 80053; 83690; 85025; 86140; 99284; J7030

== ENCOUNTER 2025-03-27 13:54 | Emergency (ER) | payer SELFPAY ==
--- OUTSIDE RECORDS SUMMARY | 2025-03-27 14:35 | XMS REPORT | Continuity of Care Document ---
Author Name Unknown Address [address] [facility] [address] [place] [address] [facility] [place] Address [address] [facility]. 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 Role Phone Leopoldo Alfonso DO Primary Care Physician [phone] PALOMA TRIPLETT Attending Clinician UnavailLEOPOLDO Livingston Attending Clinician Unavailable MD AMANDA Attending Clinician Unavailab Cornelio SANDERS, Zoe Attending Clinician Unavailable Jasmyne Elise MD Attending Clinician [phone] JASMYNE ELISE Attending Clinician Unavailable HARRY GUIDRY Attending Clinician Unavail able Nataliya BARKLEY, Ankit Ibarra Attending Clinician + Doctor Unassigned, Tyrone Forge Attending Clinician U navailable PALOMA TRIPLETT Admitting Clinician UnavailJASMYNE Royal Admitting Clinician Unavailable Payers Payer Name Policy Type Policy Number Effective Date Expirati on Date Source [facility] [id number] 2017 00:00:00 BC 2 [id number] 2021 00:00:00 Problems Condition Name Condition Details Condition Category Status Onset Date Resolution Date Last Treatment Date Treating Clinician Comments Source Bronchitis Bronchitis Disease Active 08-18 00:00: 00 Sarah Leyva Encounter for observatio n for suspected exposure to other biological agents ruled out Encounter for observatio n for suspected exposure to other biological agents ruled out Disease Active 08-18 00:00: 00 Sarah Leyva Sleep apnea, unspecifie d type Sleep apnea, unspecifie d type Disease Active 08-15 00:00: 00 [facility] acute hospital Adjustment disorder with depressed mood Adjustment disorder with depressed mood Disease Active 11-06 00:00: 00 [facility] Allergies, Adverse Reactions, Alerts Allergy Name Allergy Type Status Severity Reaction(s) Onset Date Inactive Date Treating Clinician Comments Source NO KNOWN ALLERGIE S Drug Class Active General acute hospital Social History Social Habit Start Date Stop Date Quantity Comments Source Sexual orientation U [facility] History of tobacco use Cigarette Smoker Sarah mendenhall History SDOH Alcohol Frequency Sarah white History SDOH Alcohol Std Drinks Sarah lozano History SDOH Alcohol Binge Sarah Leyva Alcoholic beverage intake 2025-01-19 00:00:00 2025-01-19 00:00:00 Current drinker of alcohol (finding) [facility] Exposure to SARS-CoV-2 (event) 2021-08-08 00:00:00 2021-08-18 09:18:00 Unable to assess Sarah Leyva Education 2021-08-18 00:00:00 2021-08-18 00:00:00 15 Sarah Leyva Alcohol intake 2021-08-18 00:00:00 2021-08-18 00:00:00 Current drinker of alcohol (finding) Sarah Leyva History of Social function 2018-12-15 00:00:00 2018-12-15 00:00:00 [facility] Cigarettes smoked current (pack per day) - Reported 2018-02-22 00:00:00 2018-02-22 00:00:00 [facility] Cigarette pack-years 2018-02-22 00:00:00 2018-02-22 00:00:00 [facility] Tobacco use and exposure 2018-02-22 00:00:00 2018-02-22 00:00:00 Smokeless tobacco non-user [facility] Tobacco Comment 2017-08-13 00:00:00 2017-08-13 00:00:00 now using vape [facility] Alcohol Comment 2017-08-13 00:00:00 2017-08-13 00:00:00 every other week: 1 case [facility] Sex assigned at 1990 00:00:00 1990 00:00:00 [facility] Smoking Status Start Date Stop Date Source Ex-smoker 2021-08-18 00:00:00 2021-08-18 00:00:00 Myranda Leyva Smokes tobacco daily 2018-02-22 00:00:00 [facility] Medications Ordered Medication Name Filled Medication Name Start Date Stop Date Current Medication? Ordering Clinician Indication Dosage Frequency Signature (SIG) Comments Components Source iopamidol (ISOVUE 370-500 mL) injection 80 mL 01-19 07:15: 00 01-19 07:15 :00 No [id number] 80mL 80 mL, Intravenou s, ONCE, 1 dose, On Wed01/19/25 at 0215, Routine General acute hospital ketorolac (TORADOL) injection 30 mg 01-19 07:15: 00 01-19 06:16 :00 No 30mg 30 mg, Slow IV Push, ONCE, 1 dose, On Wed01/19/25 at 0215, Routine [facility] acute hospital NaCl 0.9% (NS) bolus infusion 1,000 mL 01-19 07:00: 00 01-19 07:43 :00 No 1000mL at 999 mL/hr, 1,000 mL, IV Infusion, ONCE, 1 dose, On Wed01/19/25 at 0200, GINGER [facility] maalox/diph enhydrAMINE :lidocaine2 %viscous 1:1:1: suspension (COMPOUNDED ) 01-19 06:15: 00 01-19 06:13 :00 No 15mL 15 mL, Oral, ONCE, 1 dose, On Wed01/19/25 at 0115, Routine General acute hospital ondansetron (ZOFRAN (PF)) injection 4 mg 01-19 06:15: 00 01-19 06:14 :00 No 4mg 4 mg, Slow IV Push, ONCE, 1 dose, On Wed01/19/25 at 0115, Administer over 2-5 Minutes, 2 mL General acute hospital morpHINE (4 mg/mL) injection 4 mg 01-19 06:15: 00 01-19 06:13 :00 No 4mg 4 mg, Slow IV Push, ONCE, 1 dose, On Wed01/19/25 at 0115, STAT General acute hospital S-ADENOSYLM ETHIONINE SUL TOSYL (ROBBIE-E ORAL) 01-19 03:10: 45 Yes Take by mouth. General acute hospital traMADOL 50 mg tablet 01-19 03:10: 45 Yes 50mg Take 50 mg by mouth every 6 (six) hours as needed. [facility] acute hospital dicyclomine 20 mg tablet 01-19 00:00: 00 Yes [id number] 20mg Take 1 tablet by mouth every 6 hours as needed for Abdominal pain. General acute hospital ondansetron 4 mg tablet 01-19 00:00: 00 Yes [id number] 4mg Take 1 tablet by mouth every 8 hours as needed for Nausea and Vomiting (N/V). General acute hospital Amoxicillin -Pot Clavulanate 875-125 MG oral Tablet 08-18 00:00: 00 Yes [id number] 1{tbl} Take 1 tablet by mouth in the morning and 1 tablet in the evening. Sarah Whiteold Benzonatate (Margie Zhu) 100 MG oral Capsule 08-18 00:00: 00 Yes [id number] 100mg Q.[id number] 3D Take 1 capsule (100 mg total) by mouth 3 times daily as needed for cough Sarah Leyva Oseltamivir Phosphate 75 MG oral Capsule 08-18 00:00: 00 08-24 04:59 :00 No [id number] 75mg Take 1 capsule (75 mg total) by mouth in the morning and 1 capsule (75 mg total) in the evening. Do all this for 5 days. Sarah Leyva predniSONE (DELTASONE) 10 MG oral tablet 08-18 00:00: 00 08-18 00:00 :00 No [id number] One pill twice daily for 7 days then one pill daily for 7 days Sarah Leyva ibuprofen 800 mg tablet 10-14 00:00: 00 Yes [id number] 800mg Take 1 tablet by mouth every 8 (eight) hours. General acute hospital azithromyci n 250 mg tablet 02-22 00:00: 00 Yes [id number] 250mg Take 1 tablet by mouth SEE-INSTRU CTIONS. Take 500 mg day 1, then 250 mg days 2 to 5. General acute hospital bromphenira mine-pseudo ephedrine-D M (BROMFED DM) 2-30-10 mg/5 mL syrup 02-22 00:00: 00 Yes [id number] 5mL Take 5 mL by mouth 4 (four) times daily as needed for Congestion /Allergies or Cough. General acute hospital levothyroxi ne 50 mcg tablet 02-21 00:00: 00 Yes [id number] 50ug Take 1 tablet by mouth every morning. Follow-up with Dr. Adan for refills. General acute hospital Vital Signs Vital Name Observation Time Observation Value Comments S gómez Systolic blood pressure 2025-01-19 08:01:00 122 mm[Hg] [facility] Diastolic blood pressure 2025-01-19 08:01:00 80 mm[Hg] [facility] Heart rate 2025-01-19 08:01:00 70 /min [facility] Body temperature 2025-01-19 08:01:00 36.72 Kate [facility] Respiratory rate 2025-01-19 08:01:00 18 /min [facility] Oxygen saturation in Arterial blood by Pulse oximetry 2025-01-19 08:01:00 98 /min [place] [facility] Body height 2025-01-19 05:52:00 177.8 cm [facility] Body weight 2025-01-19 05:52:00 104.327 kg [facility] BMI 2025-01-19 05:52:00 33.00 kg/m2 [facility] Systolic blood pressure 2021-08-18 18:52:00 104 mm[Hg] Sarah Seybo ld Diastolic blood pressure 2021-08-18 18:52:00 58 mm[Hg] Sarah Seybo ld Heart rate 2021-08-18 18:52:00 92 /min Kelse y Seybold Body temperature 2021-08-18 18:52:00 36.89 Kate Sarah Seybold Respiratory rate 2021-08-18 18:52:00 14 /min Sarah Seybold Body height 2021-08-18 18:52:00 182.9 cm Anastacia ey Seybold Body weight 2021-08-18 18:52:00 106.142 kg Anastacia ey Seybold BMI 2021-08-18 18:52:00 31.74 kg/m2 Anastacia ey Seybold Procedures Procedure Date / Time Performed Performing Clinician Source URINALYSIS 2025-01-19 06:27:00 Bethany Ramesh [facility] LACTIC ACID WITH 2 HOUR REFLEX 2025-01-19 06:09:00 Paloma Triplett [facility] LIPASE 2025-01-19 05:56:00 Bethany Ramesh [facility] MAGNESIUM 2025-01-19 05:56:00 Paloma Triplett [facility] TROPONIN I 2025-01-19 05:56:00 Bethany Ramesh [facility] COMP. METABOLIC PANEL (07148) 2025-01-19 05:56:00 Bethany Ramesh [facility] SEDIMENTATION RATE 2025-01-19 05:56:00 Kaylynn Triplett [facility] CBC WITH DIFF 2025-01-19 05:56:00 Bethany Ramesh [facility] LS RAPID STREP ASSAY-LAB TEST 2021-08-18 19:40:56 Leopoldo Alfonso LS RAPID FLU ASSAY-LAB TEST 2021-08-18 19:40:56 Leopoldo Alfonso Encounters Start Date/Time End Date/Time Encounter Type Admission Type Attending [facility] Care Department Encounter ID Source 2025-01-19 00:48:00 2025-01-19 03:10:00 [facility] [id number] General acute hospital 2022-11-26 00:00:00 2022-11-26 00:00:00 Outpatient LEOPOLDO ALFONSO [id number] Sarah Leyva 2021-08-19 00:00:00 2021-08-19 00:00:00 Outpatient MD SARAH ACEVEDO [id number] Sarah [facility] 2021-08-18 14:00:00 2021-08-18 14:00:00 Office Visit LEOPOLDO ALFONSO [id number] [id number] [facility] 2019-10-17 00:00:00 2019-10-17 00:00:00 Transition of Care Marcus Zoe Aishwarya Chavez [id number] 2019-10-15 03:32:30 2019-10-15 05:01:00 Emergency Jasmyne Elise [facility] [id number] [id number] 2019-10-15 03:32:30 2019-10-15 05:01:00 Emergency X JASMYNE ELISE [facility] ERT [id number] General acute hospital 2019-09-12 14:40:00 2019-09-12 14:40:00 Outpatient HARRY AMBROCIO [facility] [id number] [facility] 2019-09-06 10:25:43 2019-09-12 10:49:57 Telemedici ne Visit Ankit An [facility] [id number] [id number] [id number] [id number] 2019-09-11 00:00:00 2019-09-11 00:00:00 Patient Secure Msg Doctor Unassigned, Tyrone Forge [facility] [id number] [id number] [id number] [id number] Results Test Description Test Time Test Comments Results Result Co mments Source [facility]2025-08-15 07:56:29* Test Item Value Reference Range Interpretation Comme nts MAGNESIUM (test code = 6578744934) 2.1 mg/dL 1.7-2.4 Lab Interpretation (test cod e = 24138-5) Normal [facility] [id number] 06:31:34* Test Item Value Reference Range Interpretation Comme nts TROPONIN I (test code = 5739050701) 0.001 ng/mL <=0.034 MIMA (test code = MIMA) Reference (Normal) Range (defined by the 99th percentile reference limit): <= 0.034 ng/mL Note: Cardiac troponin begins to rise 3-4 hours after the onset of ischemia. Repeat in 4-6 hours if the sample was drawn within 3-4 hours of the onset of the symptom and found normal. Diagnosis of myocardial injury is made with acute changes in cTn concentrations with at least one serial sample above the 99th percentile upper reference limit (URL), taken together with the patient's clinical presentation. Biotin has been reported to cause a negative bias, interpret results relative to patient's use of biotin. Lab Interpretation (test code = 75049-2) Normal [facility] Metabolic [id number] 06:20:13* Test Item Value Reference Range Interpretation Comme nts NA (test code = 5067954412) 141 mmol/L 135-145 K (test code = 3930344698) 3.9 mmol/L 3.5-5.0 CL (test code = 0008922332) 109 mmol/L 98-108 H CO2 TOTAL (test code = 4799034916) 23 mmol/L 23-31 AGAP (test code = 7896172773) 9 2-16 BUN (test code = 5246636139) 14 mg/dL 7-23 GLUCOSE (test code = 0471522174) 123 mg/dL 70-110 H CREATININE (test code = 2160-0) 0.97 mg/dL 0.60-1.25 TOTAL BILI (test code = 5487911266) 0.9 mg/dL 0.1-1.1 CALCIUM (test code = 0358716796) 9 mg/dL 8.6-10.6 T PROTEIN (test code = 4837238104) 7.1 g/dL 6.3-8.2 ALBUMIN (test code = 9401273565) 4.3 g/dL 3.5-5.0 ALK PHOS (test code = 7870654248) 110 U/L 34-122 ALTv (test code = 1742-6) 35 U/L 5-50 AST(SGOT) (test code = 0910498174) 38 U/L 13-40 eGFR (test code = 67603-6) 103.8 mL/min/1.73m2 CKD-EPI eGFR (2020). Assuming creatinine has been stable day-to-day for at least three months, the eGFR indicates Category G1 (>= 90 mL/min/1.73 m2) Lab Interpretation (test code = 99384-7) Abnormal [facility], [id number] 06:19:32* Test Item Value Reference Range Interpretation Comme nts LIPASE (test code = 7735766044) 241 U/L 0-220 H Lab Interpretation (test cod e = 14220-6) Abnormal [facility] WITH 2 HOUR [id number] 06:15:44* Test Item Value Reference Range Interpretation Comme nts LACTIC ACID (test code = 9133383548) 1.44 mmol/L 0.50-2.20 Lab Interpretation (test cod e = 28684-1) Normal [facility] with [id number] 06:06:45* Test Item Value Reference Range Interpretation Comme nts WBC (test code = 6690-2) 9.6 4.20-10.70 RBC (test code = 789-8) 5.42 4.26-5.52 HGB (test code = 718-7) 15.8 g/dL 12.2-16.4 HCT (test code = 4544-3) 46.7 % 38.4-49.3 MCV (test code = 787-2) 86.2 fL 81.7-95.6 MCH (test code = 785-6) 29.2 pg 26.1-32.7 MCHC (test code = 786-4) 33.8 g/dL 31.2-35.0 RDW-SD (test code = 08232-5) 41.1 fL 38.5-51.6 RDW-CV (test code = 788-0) 13.2 % 12.1-15.4 PLT (test code = 777-3) 295 150-328 MPV (test code = 07648-7) 9.7 fL 9.8-13.0 L NRBC/100 WBC (test code = 8921108109) 0 0.0-10.0 NRBC x10^3 (test code = 5801670897) See_Comment [Automated messa ge] The system which generated this result transmitted reference range: 10*3/?L. The reference range was not used to interpret this result as normal/abnormal. GRAN MAT (NEUT) % (test code = 770-8) 56.3 % IMM GRAN % (test code = 7999384709) 0.4 % LYMPH % (test code = 736-9) 30 % MONO % (test code = 5905-5) 9.7 % EOS % (test code = 713-8) 2.7 % BASO % (test code = 706-2) 0.9 % GRAN MAT x10^3(ANC) (test code = 2034695788) 5.4 10*3/uL 1.99-6.95 IMM GRAN x10^3 (test code = 0374524262) 0.04 10*3/uL 0.00-0.06 LYMPH x10^3 (test code = 731-0) 2.88 10*3/uL 1.09-3.23 MONO x10^3 (test code = 742-7) 0.93 10*3/uL 0.36-1.02 EOS x10^3 (test code = 711-2) 0.26 10*3/uL 0.06-0.53 BASO x10^3 (test code = 704-7) 0.09 10*3/uL 0.01-0.09 Lab Interpretation (test code = 89203-8) Abnormal [facility] RAPID FLU ASSAY-LAB [id number] 19:44:23 * Test Item Value Reference Range Interpretation Comme nts INFLUENZA B AG, EIA (test co de = 07815-9) Negative Negative A Lab Interpretation (test cod e = 99918-9) Abnormal Sarahakin Leyva RAPID STREP ASSAY-LAB [id number] 19:43:48* Test Item Value Reference Range Interpretation Comme nts STREP GP A AG, IA (test code = 74085-6) Negative Negative Infection due to Strep A cannot be ruled-out because the antigen present in the sample may be below the detection limit of the test. Specimen has been sent for confirmation of negative. Lab Interpretation (test code = 84670-0) Normal Sarah Lealblake Notes Date/Time Note Provider Source 2025-01-19 00:50:36 Pt arrived ambulatory without assist. Pt c/o mid upper abd pain that started a few hours ago, Pt reports pain feels like a lot of pressure. [facility]
--- NOTE | 2025-03-27 15:21 | RAD REPORT ---
EXAM: XR Hand Right 3 View HISTORY: [facility] MAIN PAIN Bed Name: IW1 COMPARISON: None TECHNIQUE: 3 radiographic views of the RIGHT hand submitted. FINDINGS: No evidence of acute fracture or dislocation. Joint alignment is maintained. No soft tissu e swelling is seen.. No significant degenerative changes are present. IMPRESSION: No significant bone or joint abnormality.
--- NOTE | 2025-03-27 15:46 | ER ---
Nurse's Notes [facility] Name: Otto Sullivan Age: 35 yrs Sex: Male : 1990 Arrival Date: 03/27/2025 Time: 13:54 Bed 10 Private MD: Diagnosis: Pain in right hand Presentation: 03/27 14:02 Chief complaint: Patient states: RT THUMB INJURY DURING ALTERCATION ABOUT 3-4 HOURS dd2 AGO. REPORTS PAIN WITH GRABBING, OR PICKING UP. Coronavirus screen: At this time, the client does not indicate any symptoms associated with coronavirus-19. Ebola Screen: No symptoms or risks identified at this time. Risk Assessment: Do you want to hurt yourself or someone else? Patient reports no desire to harm self or others. Onset of symptoms was March 27, 2025. 14:02 Method Of Arrival: Ambulatory dd2 14:02 Acuity: MARLON 3 dd2 14:03 Initial Sepsis Screen: Does the patient meet any 2 criteria? No. Patient's initial dd2 sepsis screen is negative. Does the patient have a suspected source of infection? No. Patient's initial sepsis screen is negative. Triage Assessment: 14:03 General: Appears in no apparent distress. uncomfortable, Behavior is calm, cooperative, dd2 appropriate for age. Pain: Complains of pain in right thumb. Musculoskeletal: Circulation, motion, and sensation intact. Range of motion: intact in all extremities, Reports pain in right thumb. Historical: - Allergies: 14:03 No Known Allergies; dd2 - PMHx: 14:03 Anxiety; Migraines; dd2 - PSHx: 14:03 None; dd2 - Immunization history:: Adult Immunizations up to date. - Infectious Disease History:: Denies. - Social history:: Smoking status: Reported history of juuling and/or vaping. Screenin:08 [facility] ED Fall Risk Assessment (Adult) History of falling in the last 3 months, kj2 including since admission No falls in past 3 months (0 pts) Confusion or Disorientation No (0 pts) Intoxicated or Sedated No (0 pts) Impaired Gait No (0 pts) Mobility Assist Device Used No (0 pt) Altered Elimination No (0 pt) Score/Fall Risk Level 0 - 2 = Low Risk Maintained a safe environment, Hourly rounding (assess needs \T\ fall precautionary measures) done. Abuse screen: Denies threats or abuse. Denies injuries from another. Nutritional screening: No deficits noted. Tuberculosis screening: No symptoms or risk factors identified. Assessment: 14:07 General: Appears in no apparent distress. Behavior is cooperative. Pain: Complains of kj2 pain in right thumb Pain currently is 7 out of 10 on a pain scale. Neuro: Level of Consciousness is awake, alert, obeys commands, Oriented to person, place, time, situation. Cardiovascular: Patient's skin is warm and dry. Respiratory: Airway is patent Respiratory effort is even, unlabored. GI: : No signs and/or symptoms were reported regarding the genitourinary system. 15:05 Reassessment: Patient appears in no apparent distress at this time. Patient and/or kj2 family updated on plan of care and expected duration. Pain level reassessed. Patient is alert, oriented x 3, equal unlabored respirations, skin warm/dry/pink. 16:08 Reassessment: Patient appears in no apparent distress at this time. kj2 Vital Signs: 14:03 BP 113 / 81; Pulse 79; Resp 16; Temp 98; Pulse Ox 97% on R/A; Pain 0/10; dd2 15:05 BP 132 / 89; Pulse 70; Resp 18; Pulse Ox 100% on R/A; kj2 16:08 BP 134 / 82; Pulse 72; Resp 18; Temp 98.2; Pulse Ox 100% on R/A; kj2 14:03 Pain Scale: Adult dd2 ED Course: 13:56 Patient arrived in ED. im 13:57 Xenia Leiva F[facility]-C [facility] kb 13:57 Itz Sorensen DO is Attending Physician. kb 14:03 Triage completed. dd2 14:05 Arm band placed on left wrist. dd2 14:06 Brooklynn Driscoll, TOMMY is Primary Nurse. kj2 14:08 Patient has correct armband on for positive identification. Bed in low position. Call kj2 light in reach. Provided Education on: call light. 14:39 Hand Right 3 View XRAY In Process Unspecified. EDMS 16:09 No provider procedures requiring assistance completed. Patient did not have IV access kj2 during this emergency room visit. Administered Medications: No medications were administered Medication: 16:09 VIS not applicable for this client. kj2 Outcome: 15:45 Discharge ordered by MD. simons 16:09 Discharged to home ambulatory, kj2 16:09 Condition: stable 16:09 Discharge instructions given to patient, Instructed on discharge instructions, follow up and referral plans. Demonstrated understanding of instructions, follow-up care, 16:13 Patient left the ED. kj2 Signatures: Dispatcher [employer] EDXenia Headley, MAEGAN-C TUBE AND MANIFOLD BUILDER-Olinda Pro Krystal, RN RN kj2 JAQUI REA RN RN dd2
--- NOTE | 2025-03-27 15:46 | EDPHYS ---
Physician Documentation [facility] Name: Otto Sullivan Age: 35 yrs Sex: Male : 1990 Arrival Date: 03/27/2025 Time: 13:54 Bed 10 Private MD: ED Physician Itz Sorensen HPI: 03/27 14:03 This 35 yrs old Male presents to ER via Ambulatory with complaints of Hand Injury - kb right. 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 Denies any other injuries. Reports hand came into contact with someone's face. No open wounds. . Historical: - Allergies: 14:03 No Known Allergies; dd2 - PMHx: 14:03 Anxiety; Migraines; dd2 - PSHx: 14:03 None; dd2 - Immunization history:: Adult Immunizations up to date. - Infectious Disease History:: Denies. - Social history:: Smoking status: Reported history of juuling and/or vaping. ROS: 14:03 Constitutional: As per HPI kb Exam: 14:03 Constitutional: This is a well developed, well nourished patient who is awake, alert, kb and in no acute distress. Head/Face: Normocephalic, atraumatic. ENT: Moist Mucous membranes Cardiovascular: Regular rate Respiratory: Respirations even and unlabored. No increased work of breathing. Talking in full sentences Skin: Warm, dry with normal turgor. Normal color. Neuro: Awake and alert, GCS 15, oriented to person, place, time, and situation. 14:03 Musculoskeletal/extremity: Extremities: grossly normal except: noted in the right thumb: decreased ROM, pain, ROM: limited active range of motion, Circulation is intact in all extremities. Sensation intact. Vital Signs: 14:03 BP 113 / 81; Pulse 79; Resp 16; Temp 98; Pulse Ox 97% on R/A; Pain 0/10; dd2 15:05 BP 132 / 89; Pulse 70; Resp 18; Pulse Ox 100% on R/A; kj2 16:08 BP 134 / 82; Pulse 72; Resp 18; Temp 98.2; Pulse Ox 100% on R/A; kj2 14:03 Pain Scale: Adult dd2 MDM: 14:00 Medical Screening Exam initiated kb 14:05 Differential diagnosis: dislocation, closed fracture, contusion. Data reviewed: vital kb signs, nurses notes. 15:25 Independent interpretation of the following test(s) in the Emergency Department X-Ray: kb My interpretation is no fracture, dislocation. Counseling: I had a detailed discussion with the patient and/or guardian regarding the historical points, exam findings, and any diagnostic results supporting the discharge/admit diagnosis, radiology results, the need for outpatient follow up, a family practitioner, to return to the emergency department if symptoms worsen or persist or if there are any questions or concerns that arise at home. 03/27 14:03 Order name: Hand Right 3 View XRAY; Complete Time: 15:24 kb Administered Medications: No medications were administered Disposition: 15:42 I was immediately available on-site in the Emergency Department for consultation in the ms3 care of the patient. Disposition Summary: 03/27/25 15:45 Discharge Ordered Notes: Location: Home kb Condition: Stable kb Diagnosis - Pain in right hand kb Followup: kb - With: Emergency Department - When: As needed - Reason: Worsening of condition Followup: kb - With: Private Physician - When: 2 - 3 days - Reason: Recheck today's complaints, Continuance of care, Re-evaluation by your physician Discharge Instructions: - Discharge Summary Sheet kb - Musculoskeletal Pain kb Forms: - Medication Reconciliation Form kb - Antibiotic Education kb - Prescription Opioid Use kb - Patient Portal Instructions kb - Leadership Thank You Letter kb Signatures: Dispatcher [employer] EDXenia Headley, MAEGAN-C [employer]ELOPER-Itz Castillo DO DO ms3 JAQUI REA RN RN dd2 Corrections: (The following items were deleted from the chart) 14:04 14:04 Hand Right 3 View+RAD.RAD.BRZ ordered. EDMS EDMS
[2025-03-27 19:54] VITALS: O2SAT 100
[2025-03-27 19:55] VITALS: BP 134/82; TEMP 98.2
== END 2025-03-27 16:13 | disposition home or self-care (01) ==
LOC: ER 13:54
DX: M79.641 Pain in right hand (principal)
CPT/HCPCS: 99283